=== PATIENT | female | born 1950 | race Caucasian/White ===

== ENCOUNTER 2017-08-13 10:53 | Inpatient (IN) ==
--- NOTE | 2017-08-12 16:28 | Discharge Summary ---
<Viv Kimbrough E - Last Filed: 08/12/17 16:26> Date of Encounter: 08/12/17 - Discharge Diagnosis (1) Arthritis of left hip Priority: Primary Status: Chronic (2) Chronic pain Priority: Secondary Status: Chronic Qualifiers: Chronic pain type: other chronic pain Qualified Code(s): G89.29 - Other chronic pain (3) BMI 30.0-30.9,adult Priority: Secondary Status: Chronic (4) Depression Priority: Secondary Status: Chronic Qualifiers: Depression Type: unspecified Qualified Code(s): F32.9 - Major depressive disorder, single episode, unspecified (5) CKD (chronic kidney disease), stage III Priority: Secondary Status: Chronic (6) HLD (hyperlipidemia) Priority: Secondary Status: Chronic Qualifiers: Hyperlipidemia type: unspecified Qualified Code(s): E78.5 - Hyperlipidemia , unspecified (7) HTN (hypertension) Priority: Secondary Status: Chronic Qualifiers: Hypertension type: unspecified Qualified Code(s): I10 - Essential (primary ) hypertension (8) Diabetes mellitus Priority: Secondary Status: Chronic Qualifiers: Diabetes mellitus type: type 2 Diabetes mellitus complication status: with unspecified complications Diabetes mellitus long-term insulin use: with long-term use Qualified Code(s): E11.8 - Type 2 diabetes mellitus with unspecified complications; Z79.4 - exterminator termite (current) use of insulin; Z79.4 - custodial ( current) use of insulin; Z79.4 - exterminator termite (current) use of insulin; Z79.4 - exterminator termite (current) use of insulin - Discharge Medications Home Medications: Aspirin [Adult Low Dose Aspirin EC] 81 mg PO DAILY 11/22/15 [History] Gabapentin [Neurontin] 800 mg PO TID 11/22/15 [History] Insulin LISPRO [Humalog] 5 - 15 unit SQ TIDWM 11/22/15 [History] Insulin NPH, HUMAN [HumuLIN N] 35 unit SQ BID 11/22/15 [History] Paroxetine HCl [Paroxetine] 40 mg PO DAILY 11/22/15 [History] Aspirin Enteric Coated [Aspirin EC] 325 mg PO DAILY 21 Days #21 tablet. [Rx] Atorvastatin Calcium [Lipitor] 20 mg PO QPM 08/13/17 [History] Buspirone HCl [Buspar] 5 mg PO TID 08/13/17 [History] Celecoxib [Celebrex] 200 mg PO HS 08/13/17 [History] Cyclobenzaprine [Flexeril] 5 mg PO HS 08/13/17 [History] Enalapril Maleate [Vasotec] 10 mg PO BID 08/13/17 [History] Allergies/Adverse Reactions: 3 Allergy/AdvReac Type Severity Reaction Status Date / Time codeine Allergy Severe Anaphylaxis Verified 08/09/17 14:02 Primary care physician: Kimberly Delgado, - Discharge Instructions Follow Up With: Kimberly Delgado MD [Primary Care Provider] - - Hospital Course Hospital course: Ms. Gonzalez is a 66 year old female - Time Spent with Patient Total time spent providing and/or coordinating discharge services: <Clifford Metzger - Last Filed: 08/15/17 09:45> Date of Encounter: 08/15/17 - Discharge Diagnosis (1) Obesity (BMI 35.0-39.9 without comorbidity) Priority: Secondary Status: Chronic (2) DMII (diabetes mellitus, type 2) Priority: Secondary Status: Chronic Qualifiers: Diabetes mellitus complication status: without complication Diabetes mellitus long-term insulin use: unspecified oil heaterman insulin use status (3) HTN (hypertension) Priority: Secondary Status: Chronic (4) Arthritis of left hip Priority: Primary Status: Chronic (5) Chronic pain Priority: Secondary Status: Chronic Qualifiers: Chronic pain type: other chronic pain Qualified Code(s): G89.29 - Other chronic pain (6) Depression Priority: Secondary Status: Chronic Qualifiers: Depression Type: unspecified Qualified Code(s): F32.9 - Major depressive disorder, single episode, unspecified (7) CKD (chronic kidney disease), stage III Priority: Secondary Status: Chronic (8) HLD (hyperlipidemia) Priority: Secondary Status: Chronic Qualifiers: Hyperlipidemia type: unspecified Qualified Code(s): E78.5 - Hyperlipidemia , unspecified (9) HTN (hypertension) Priority: Secondary Status: Chronic Qualifiers: Hypertension type: unspecified Qualified Code(s): I10 - Essential (primary ) hypertension (10) Acute blood loss anemia Priority: Primary Status: Acute Primary care physician: Kimberly Delgado, - Hospital Course Hospital course: Ms. Gonzalez is a 66 year old female - Time Spent with Patient Total time spent providing and/or coordinating discharge services:
--- NOTE | 2017-08-12 16:32 | Physician Discharge Referral ---
ExtendedCare Referral Info Transfer To: [facility] Provider in Charge: Dr Clifford Metzger - Diagnosis (1) Arthritis of left hip Priority: Primary Status: Chronic (2) Chronic pain Priority: Secondary Status: Chronic (3) BMI 30.0-30.9,adult Priority: Secondary Status: Chronic (4) Depression Priority: Secondary Status: Chronic (5) CKD (chronic kidney disease), stage III Priority: Secondary Status: Chronic (6) HLD (hyperlipidemia) Priority: Secondary Status: Chronic (7) HTN (hypertension) Priority: Secondary Status: Chronic (8) Diabetes mellitus Priority: Secondary Status: Chronic Expected Duration of Placement: less than 30 days Prognosis: Good Aware of Diagnosis: Patient Aware of Prognosis: Patient - Transfer Medications Prescriptions: Aspirin Enteric Coated [Aspirin EC] 325 mg PO DAILY 21 Days #21 tablet. Home Medications: Aspirin Enteric Coated [Aspirin EC] 325 mg PO DAILY #21 tablet. 11/21/15 [Rx] OxyCODONE Immed Rel [Roxicodone 5 MG] 5 - 10 mg PO Q6HR PRN #40 tablet 11/21/15 [Rx] Aspirin [Adult Low Dose Aspirin EC] 81 mg PO DAILY 11/22/15 [History] Gabapentin [Neurontin] 800 mg PO TID 11/22/15 [History] Insulin LISPRO [Humalog] 25 unit SQ BID 11/22/15 [History] Insulin NPH, HUMAN [HumuLIN N] 5 unit SQ TID 11/22/15 [History] Paroxetine HCl [Paroxetine] 40 mg PO DAILY 11/22/15 [History] Aspirin Enteric Coated [Aspirin EC] 325 mg PO DAILY 21 Days #21 tablet. [Rx] Allergies/Adverse Reactions: 3 Allergy/AdvReac Type Severity Reaction Status Date / Time codeine Allergy Severe Anaphylaxis Verified 08/09/17 14:02 - Respiratory Orders Smoking Cessation: Smoking cessation has been advised. For more information, call the [place] Tobacco Quit Line at 8-352-LYLV-NOW. - Ancillary Orders May use pressure relief devices daily prn, May go on HERNAN w/family/respon alliance party w /meds at nurse discretion PRN, May consult with Dentist, Occupational Health Nurse Manager, Kennel Attendant PRN - Mobility Orders Chair, Ambulate - Rehabiliation Orders Rehab Potential: Good Rehab Orders: Evaluation for Physical Therapy, Evaluation for Occupational Therapy Other: Total Hip replacement Precautions Apply cold therapy 3-6x/day for 20 minutes at a time. Encourage ambulation throughout the day and incentive spirometer 10x/hour. Elevate affected extremity as tolerated. Brace: Wear hip abduction pillow when laying/sleeping - Treatments Skin tear care topically daily PRN per policy List/Other: Opsite placed. Keep dressing intact until first follow up appointment. If > 50% saturated, notify office, remove dressing and place appropriate dressing back in place. Leave Zipline intact. Opsite dressing is water resistant, not water- proof. OK to shower, but do not get dressing wet. - Diet Orders Regular CERTIFICATION: I certify that the transfer of the above named patient to an Extended Care Facility is necessary for the continuing treatment of the diagnosis listed. The above information is true and accurate reflection of patient's current condition. Confidential - Redisclosure prohibited without a patient's written consent.
[2017-08-13] MEDS ORDERED: *HR* Midazolam HCl 2 MG/2 ML VIAL ONE (10:57)
[2017-08-13] MEDS ORDERED: *HR* Propofol 200 MG/20 ML VIAL IVP ONE (10:57)
[2017-08-13] MEDS ORDERED: *HR* FentaNYL (PF) 100 MCG/2 ML VIAL ONE (10:57)
[2017-08-13] MEDS ORDERED: *HR* Succinylcholine 200 MG/10 ML VIAL IVP ONE (10:58)
[2017-08-13] MEDS ORDERED: Lidocaine -MPF 4% 5 ML AMPUL ONE (10:58)
[2017-08-13] MEDS ORDERED: Lidocaine -MPF 2% 2 ML VIAL ONE (10:58)
[2017-08-13] MEDS ORDERED: Dexamethasone 4 MG/ML VIAL ONE (10:58)
[2017-08-13] MEDS ORDERED: Ondansetron 4 MG/2 ML VIAL ONE (10:58)
--- NOTE | 2017-08-13 11:23 | Anesthesia Evaluation PreOp ---
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 SPECIALIST History: Other (lumbar stenosis) Other Medical History: Renal (CKD), Diabetes Type II Anesthesia History: No Prior Anesthetic Complications, Past Anesthesia Alcohol Use: none Drug use: none Medications and Allergies Aspirin [Adult Low Dose Aspirin EC] 81 mg PO DAILY 11/22/15 [History] Gabapentin [Neurontin] 800 mg PO TID 11/22/15 [History] Insulin LISPRO [Humalog] 5 - 15 unit SQ TIDWM 11/22/15 [History] Insulin NPH, HUMAN [HumuLIN N] 35 unit SQ BID 11/22/15 [History] Paroxetine HCl [Paroxetine] 40 mg PO DAILY 11/22/15 [History] Aspirin Enteric Coated [Aspirin EC] 325 mg PO DAILY 21 Days #21 tablet. [Rx] Atorvastatin Calcium [Lipitor] 20 mg PO QPM 08/13/17 [History] Buspirone HCl [Buspar] 5 mg PO TID 08/13/17 [History] Celecoxib [Celebrex] 200 mg PO HS 08/13/17 [History] Cyclobenzaprine [Flexeril] 5 mg PO HS 08/13/17 [History] Enalapril Maleate [Vasotec] 10 mg PO BID 08/13/17 [History] 3 Allergy/AdvReac Type Severity Reaction Status Date / Time codeine Allergy Severe Anaphylaxis Verified 08/09/17 14:02 - Meds/Allergy Pre-op Review Medications Reviewed: Yes Allergies Reviewed: Yes Beta Blockers on Current Med List: No Anesthesia Results - Labs Laboratory Tests 08/09/17 08/09/17 08/09/17 14:24 14:24 14:24 WBC 5.0 Hgb 11.3 L Hct 36.7 Plt Count 315 PT 12.0 INR 1.1 APTT 42.8 H Sodium 143 Potassium 5.0 H BUN 30 H Creatinine 1.32 H - Imaging EKG: report reviewed (08/09/2017 SINUS RHYTHM POSSIBLE ANTERIOR MYOCARDIAL INFARCTION, OF INDETERMINATE AGE) Additional studies: 02/05/2014 Stress Impression: Pharmacologic stress ECG is negative for ischemia at level of heart rate achieved. No chest pain or arrhythmias during stress. Normal hemodynamic responses to pharmacologic stress. The left ventricle does not appear dilated. Normal wall motion. Gated EF > 70%. No evidence of transient ischemic dilatation. Perfusion imaging was negative for ischemia or infarct. Anesthesia Exam O2 Sat Height 1.63 m Height 1.63 m Height 1.63 m Weight 95.254 kg Weight 95.254 kg Weight 95.254 kg O2 Sat by Pulse Oximetry 98 Vital Signs Temp Pulse Resp BP Pulse Ox 97.6 F 77 18 135/76 98 08/13/17 11:22 08/13/17 11:22 08/13/17 11:22 08/13/17 11:22 08/13/17 11:22 Blood Glucose* 138 Height: 5'4'' Weight: 210 lbs NPO (# of Hours): 8 Pain Scale: 6 (left hip) Pain Scale Used: Numeric (1 - 10) - HEENT Pupil (Motor): EOMI Mallampati: II Teeth: Missing, Poor dentition (multiple broken lower teeth) Denture Type: Upper: Complete Oral Opening: Greater than 3 - FIRE FIGHTING EQUIPMENT SPECIALIST LOC: Oriented FIRE FIGHTING EQUIPMENT SPECIALIST Motor: Normal RUE, Normal LUE, Normal RLE, Normal LLE, Normal Face FIRE FIGHTING EQUIPMENT SPECIALIST Sensory: Normal: RUE, LUE, RLE, LLE, Face - Cardiac Rhythm: Regular Murmur: None - Pulmonary Breath Sounds: bilateral Clear Respiratory Effort: Symmetrical Anesthesia Assess/Plan ASA Score: 3 Modified Edna Scale for Level of Consciousness: Cooperative, oriented, and tranquil Anesthetic Plan: General, Regional Monitoring Plan: Standard Monitors Recovery Plan: PACU
[2017-08-13] MEDS ORDERED: CeFAZolin Syr 2,000MG/20 ML 2,000 MG/20 ML SYRINGE IVPB ONE (11:27)
[2017-08-13] MEDS ORDERED: Lidocaine -MPF 1% 2 ML VIAL ID ONE (11:27)
[2017-08-13] MEDS ORDERED: Plasma-Lyte A (PH 7.4) 1,000 ML IVC SCH ×2 (11:30→14:00)
--- NOTE | 2017-08-13 13:10 | History & Physical Report ---
Date of Encounter: 08/13/17 Time of Encounter: 12:00 24 Hour HP Update - Instructions Instructions: If the History and Physical is less than 30 days old and was completed prior to A.M. admission and or procedure and has NOT been updated on calendar day of procedure please complete this update prior to performing procedure. - Update Patient reports changes in Medical Condition: No Changes in examination, assessment, or condition: No Changes in Medication: No Preop tests/diagnostics Reviewed: Yes Surgery Remains Indicated: Yes Review of Patient reveals the following changes:: Elevated A1c was once again reviewed with the patient this is been a problem for over a year with no improvement significant. Patient with severe pain understands the increased risk with surgery. Discussed with anesthesia as well. - Pre-Operative Checklist Preoperative Checklist Indicated: No Prophylactic Antibiotic Ordered: Yes Is VTE Prophylaxis Indicated?: Yes
[2017-08-13] MEDS ORDERED: Ethanol\\Acetic Acid\\Na Ace\\Ben 1,000 ML IRRIG.SOLN IR ONE (13:20)
--- NOTE | 2017-08-13 13:21 | Anesthesia Procedures ---
Date of Encounter: 08/13/17 Time of Encounter: 13:10 Procedures: Anesthesia - Nerve Block Procedure Date: 08/13/17 Time: 13:10 Allergies/Adv Reactions: Codeine Pre-op Diagnosis: Left Hip Arthritis Surgical Procedure: Left Total Hip Arthroplasty Checklist: Correct Patient Identifier, Correct procedure, History checked Correct side: Left Blood Thinner: No Monitor Applied: EKG, BP, Pulse Oximetry Supplemental Oxygen via Nasal Cannula (L/min): 4 Sedation: Versed (mg): 2 Sedation: Fentanyl (mcg): 100 Indication: Post Op Analgesia Pre-op Neuro Deficits: No Block Type: Femoral Catheter placed: No Sterile Technique: Yes Ultrasound used: Yes Anatomy identified: Yes Visual spread of Local: Yes Neuro Stimulation: No Blood on Needle Aspiration: No Smooth Injection of Local: Yes Pain with Injection of Local: No Prep: Chlorhexadine Needle: 22 x 50 mm Stimuplex Local: Ropivacaine (0.25%) Volume (cc): 60 Number of Attempts: 1 Complications: None/effective block Vitals: Last Vital Signs Temp 97.6 F 08/13/17 11:22 Pulse 73 08/13/17 13:21 Resp 12 08/13/17 13:16 BP 94/61 08/13/17 13:21 Pulse Ox 95 08/13/17 13:21
[2017-08-13] MEDS ORDERED: EPHEDrine 50 MG/ML VIAL ONE (13:38)
[2017-08-13] MEDS ORDERED: Naloxone 0.4 MG/ML INJ IVP PRN ×2 (13:52→16:40)
[2017-08-13] MEDS ORDERED: Albuterol 2.5 MG/3 ML NEBULIZER IH ONE (13:52)
[2017-08-13] MEDS ORDERED: *HR* HYDROmorphone (PF) 1 MG/ML SYRINGE IVP PRN ×2 (13:52→16:40)
[2017-08-13] MEDS ORDERED: Ondansetron 4 MG/2 ML VIAL IVP ONE (13:52)
--- NOTE | 2017-08-13 14:32 | Orthopedic Operative Note ---
Date of procedure: 08/13/17 Pre-op diagnosis: Left hip arthritis Post-op diagnosis: same Procedure: Procedure: Left Total Hip Replacment robotic-assisted Estimated blood loss: 300 cc Hardware: Metal and polyethylene replacement. Cj DM Cup: 52 cup Femoral size stem 10 Head: 4 head with Nisreen Procedural Notes: Grade 4 arthritic changes femoral head acetabular socket, procedure performed with robotic assistance. Operative procedure: The patient was brought to the operating room and placed on the operating room table. After general anesthesia was administered the patient was placed in the lateral decubitus position with the operative leg up. All pressure points were padded appropriately and the head was stabilized in the neutral position. The operative extremity was prepped and draped in the sterile surgical fashion patient received IV antibiotic prior to skin incision. 3 Steinmann pins were placed in the iliac crest 3 cm proximal to the anterior superior iliac spine this was for the robotic-assisted sensor. This was done through a small 2 cm incision. A standard posterior approach is made to the operative hip, the incision was made through the skin and subcutaneous tissue hemostasis was obtained with Bovie cautery. Using careful sharp dissection the fascia was identified and incised exposing the external rotators. The femoral checkpoint was placed leg length was measured at this time utilizing robotic assistance. The operative leg was 1.3 cm shorter than the nonoperative leg. The external rotators were released off the greater trochanter and tagged with #2 FiberWire suture. The capsule was T'd open and the hip was brought into internal rotation. Patient noted to have grade 4 arthritic changes femoral head. The femoral neck cut was made at the appropriate level roughly 18 mm proximal to the lesser trochanter aced on preoperative templating. An anterior capsulotomy was performed for the anterior retractor. Soft tissues removed from the acetabulum. Patient noted to have grade 4 arthritic changes acetabulum. The acetabulum checkpoint was placed confirmed. The acetabulum was then mapped with robotic assistance. Based on the preoperative plan the acetabulum was reamed in one step with a 51 reamer. The 52 acetabulum was impacted with robotic assistance and 40 degrees of abduction and 19 degrees of anteversion. The hip was brought back in to internal rotation and prepared with the sweat box attendant followed by the canal finder followed by the reaming process to a size 10 broaching process in 20 degrees anteversion. It was broached up to the appropriate size 10. Trial reduction revealed leg lengths close to normal. The femoral implant was impacted in place in 20 degrees of anteversion. Trial reduction found the hip to be stable with 4 head and Nisreen. The trials were removed and the real implants were impacted in place. The hip was reduced, patient had robotic confirmed leg length of 2 mm longer than the contralateral side. The hip had excellent stability with forward flexion to 90 degrees adduction of 30 degrees and internal rotation of 60 degrees. The hip had no shuck. The hips after 2 minutes with a Betadine saline solution. It was irrigated out with 2 L of pulse irrigation. The checkpoints were removed, Steinmann pins were removed. The pain incision and the hip were closed by the PA. The deep tissue was irrigated and closed deep with #1 PDS suture superficially with 0 PDS suture and skin was closed with Dermabond and zip tie. The patient was placed in a sterile dressing and abduction pillow. The patient was extubated and transferred to the recovery room in stable condition. Anesthesia: MAE Surgeon: Clifford Metzger Directional Drill Operator: Viv Kimbrough Condition: stable Disposition: PACU
[2017-08-13 15:15] LABS: Hematocrit 34.1 % (35.3-44.9); Hemoglobin 10.9 g/dL (11.5-15.4)
--- NOTE | 2017-08-13 16:02 | Anesthesia Evaluation Post Op ---
Date of Encounter: 08/13/17 Time of Encounter: 16:01 - Vital Signs Vital Signs: Vital Signs/O2 Sat, Most Current Temp Pulse Resp BP Pulse Ox 97.5 F L 89 12 99/67 94 08/13/17 15:54 08/13/17 15:54 08/13/17 15:54 08/13/17 15:54 08/13/17 15:54 - Lungs Lungs: Clear Ascult./Percussion - Airway Airway: Non-obstructed - Cardiovascular Regular Rate - Mental Status Mental Status: Alert & Oriented, Answers Appropriately - Pain Pain Scale: 4 Pain Scale used: Numeric (1 - 10) - Nausea Vomiting Nausea Vomiting: Not Present - Hydration Hydration: Ice chips, Has not voided - Discharge PostOp Status: Discharge Patient to home
[2017-08-13] MEDS ORDERED: Sennosides 8.6 MG TABLET PO PRN (16:40)
[2017-08-13] MEDS ORDERED: Ondansetron 4 MG/2 ML VIAL IVP PRN (16:40)
[2017-08-13] MEDS ORDERED: *HR* Dextrose 50 % in Water (Syg) 50 ML SYRINGE IVP PRN (16:40)
[2017-08-13] MEDS ORDERED: Dextrose Gel 15 GM PO PRN ×2 (16:40)
[2017-08-13] MEDS ORDERED: Temazepam 15 MG CAPSULE PO PRN (16:40)
[2017-08-13] MEDS ORDERED: D5% in Water 1,000 ML IVC PRN (16:40)
[2017-08-13] MEDS ORDERED: MOM Conc 10 ML UD.LIQ PO PRN (16:40)
[2017-08-13] MEDS: *HR* OxyCODONE Immed Rel 5 MG TABLET PO PRN (17:46)
[2017-08-13] MEDS: *HR* Enoxaparin 30 MG/0.3 ML SYRINGE SQ SCH (17:46)
[2017-08-13] MEDS: Ascorbic Acid 500 MG TABLET PO SCH (17:47)
[2017-08-13] MEDS: Insulin LISPRO 300 UNITS/3 ML VIAL SQ SCH ×3 (17:47→21:33)
[2017-08-13] MEDS: Ringers Solution, Lactated 1,000 ML IVC SCH (17:49)
[2017-08-13] MEDS: Gabapentin 400 MG CAPSULE PO SCH ×2 (17:51→21:33)
[2017-08-13] MEDS ORDERED: *HR* Enoxaparin 30 MG/0.3 ML SYRINGE SQ SCH (18:00)
[2017-08-13] MEDS: Insulin NPH 100 UNIT/ML (x5UNIT) SQ SCH (21:32)
[2017-08-13] MEDS: CeFAZolin Premix DUPLEX 2,000 MG/50 ML BAG IVPB SCH (21:34)
[2017-08-14] MEDS: *HR* OxyCODONE Immed Rel 5 MG TABLET PO PRN ×5 (00:27→21:47)
[2017-08-14] MEDS: *HR* Enoxaparin 30 MG/0.3 ML SYRINGE SQ SCH ×2 (05:27→18:11)
[2017-08-14] MEDS: CeFAZolin Premix DUPLEX 2,000 MG/50 ML BAG IVPB SCH (05:27)
--- NOTE | 2017-08-14 06:57 | Orthopedics Progress Note ---
Date of Encounter: 08/14/17 Time of Encounter: 06:56 - Assessment and Plan (1) Obesity (BMI 35.0-39.9 without comorbidity) Current Visit: Yes Status: Chronic (2) DMII (diabetes mellitus, type 2) Current Visit: No Status: Chronic Qualifiers: Diabetes mellitus complication status: without complication Diabetes mellitus joint terminal attack controller insulin use: unspecified nursing home insulin use status Qualified Code(s): E11.9 - Type 2 diabetes mellitus without complications (3) Arthritis of left hip Current Visit: No Status: Chronic (4) Chronic pain Current Visit: No Status: Chronic Qualifiers: Chronic pain type: other chronic pain Qualified Code(s): G89.29 - Other chronic pain (5) Depression Current Visit: No Status: Chronic Qualifiers: Depression Type: unspecified Qualified Code(s): F32.9 - Major depressive disorder, single episode, unspecified (6) CKD (chronic kidney disease), stage III Current Visit: No Status: Chronic (7) HLD (hyperlipidemia) Current Visit: No Status: Chronic Qualifiers: Hyperlipidemia type: unspecified Qualified Code(s): E78.5 - Hyperlipidemia , unspecified (8) HTN (hypertension) Current Visit: No Status: Chronic Qualifiers: Hypertension type: unspecified Qualified Code(s): I10 - Essential (primary ) hypertension Subjective Interval history: Patient was seen this morning doing well without complaints. Afebrile vital signs stable. Operative extremity: Neurovascularly intact Dressing clean dry and intact Calves nontender Assessment and plan: Continue with postoperative care Hematocrit 34 Objective Vital signs: Vital Signs Temp Pulse Resp BP Pulse Ox 08/14/17 04:13 97.9 F 76 107/66 95 08/13/17 23:01 98.4 F 80 16 99/64 97 08/13/17 19:26 97.8 F 92 16 106/69 95 08/13/17 18:34 97.8 F 98 18 103/63 98 08/13/17 18:25 98.7 F 97 18 100/65 97 08/13/17 16:25 98.0 F 90 14 106/68 96 08/13/17 16:04 97.5 F L 89 12 111/72 96 08/13/17 15:54 97.5 F L 89 12 99/67 94 08/13/17 15:44 90 12 96/71 96 08/13/17 15:34 97.8 F 89 12 116/66 97 08/13/17 15:24 89 14 103/75 92 08/13/17 15:14 89 14 120/69 95 08/13/17 15:04 98.7 F 90 16 113/55 95 08/13/17 13:21 73 94/61 95 08/13/17 13:16 73 12 91/66 98 08/13/17 13:06 71 108/54 97 08/13/17 13:02 70 16 117/99 94 08/13/17 11:22 97.6 F 77 18 135/76 98 Intake and Output 08/13/17 08/13/17 08/14/17 15:59 23:59 07:59 Intake Total 20 / 20 50 / 50 Output Total 600 / 600 Balance -580 / -580 50 / 50 Intake: IV Fluids 20 / 20 50 / 50 Ancef Premix DUPLEX 2,000 mg In 50 / 50 50 ml @ 100 mls/hr IVPB Q8H VINAY Rx#:[id number] Ancef Syringe 2,000 MG/20 ML 2, 20 / 20 000 mg In 20 ml @ 200 mls/hr IVPB PREOP ONE Rx#:[id number] Output: Estimated Blood Loss 600 / 600 Other: Weight 95.254 kg Blood Glucose* 138 328 - Labs CBC & BMP: 08/13/17 15:11 Labs: Abnormal lab results Hgb 10.9 g/dL (11.5-15.4) L 08/13/17 15:11 Hct 34.1 % (35.3-44.9) L 08/13/17 15:11 POC Glucose 138 (58-89) H 08/13/17 11:19 - VTE Documentation of Mechanical Device: Venous foot pump, device Consult Discharge Plan - Plan Referrals: Kimberly Delgado MD [Primary Care Provider] -
[2017-08-14] MEDS: Ringers Solution, Lactated 1,000 ML IVC SCH ×2 (07:06→21:49)
[2017-08-14 07:07] LABS: Hematocrit 29.1 % (35.3-44.9)
[2017-08-14 07:11] LABS: Hemoglobin 9.3 g/dL (11.5-15.4)
[2017-08-14 07:19] LABS: Calcium 8.5 mg/dL (8.6-10.8); Potassium 4.3 mEq/L (3.5-4.5)
[2017-08-14] MEDS: Ascorbic Acid 500 MG TABLET PO SCH ×2 (08:26→16:25)
[2017-08-14] MEDS: Gabapentin 400 MG CAPSULE PO SCH ×3 (08:26→21:34)
[2017-08-14] MEDS: Insulin LISPRO 300 UNITS/3 ML VIAL SQ SCH ×7 (08:26→21:34)
[2017-08-14] MEDS: Aspirin Enteric Coated 81 MG Tablet PO SCH (08:26)
[2017-08-14] MEDS: Multivit/Ca/Min/Fe/FA 1 TAB TABLET PO SCH (08:26)
[2017-08-14] MEDS: Insulin NPH 100 UNIT/ML (x5UNIT) SQ SCH ×2 (08:27→21:35)
--- NOTE | 2017-08-14 12:31 | Event Note ---
Date of Encounter: 08/14/17 Time of Encounter: 12:55 PCR- POD#1 L THR Robotic Metzger 08/13 PCR - Patient seen at bedside. 08/14 - H/H 9.3/29.1 Pain control: Adequate Participating in PT. All questions and concerns addressed. Educated on use of incentive spirometer, ambulation, and hydration. Patient educated on post-operative restrictions and care. Addressed: see above. D/C plan: [facility] - awaiting acceptance
[2017-08-15] MEDS: *HR* Enoxaparin 30 MG/0.3 ML SYRINGE SQ SCH (06:22)
[2017-08-15 07:14] LABS: Hematocrit 27.9 % (35.3-44.9); Hemoglobin 8.6 g/dL (11.5-15.4)
[2017-08-15] MEDS: Insulin LISPRO 300 UNITS/3 ML VIAL SQ SCH ×6 (09:05→17:02)
[2017-08-15] MEDS: Ascorbic Acid 500 MG TABLET PO SCH ×2 (09:08→17:08)
[2017-08-15] MEDS: Aspirin Enteric Coated 81 MG Tablet PO SCH (09:08)
[2017-08-15] MEDS: Gabapentin 400 MG CAPSULE PO SCH ×2 (09:08→15:48)
[2017-08-15] MEDS: Multivit/Ca/Min/Fe/FA 1 TAB TABLET PO SCH (09:08)
[2017-08-15] MEDS: *HR* OxyCODONE Immed Rel 5 MG TABLET PO PRN ×2 (09:09→13:14)
[2017-08-15 09:21] LABS: Calcium 8.3 mg/dL (8.6-10.3); Potassium 4.1 mEq/L (3.5-5.1)
[2017-08-15] MEDS: Insulin NPH 100 UNIT/ML (x5UNIT) SQ SCH (09:21)
--- NOTE | 2017-08-15 09:47 | Orthopedics Progress Note ---
Date of Encounter: 08/15/17 Time of Encounter: 09:46 - Assessment and Plan (1) Obesity (BMI 35.0-39.9 without comorbidity) Current Visit: Yes Status: Chronic (2) DMII (diabetes mellitus, type 2) Current Visit: No Status: Chronic Qualifiers: Diabetes mellitus complication status: without complication Diabetes mellitus terminal carman insulin use: unspecified senior living insulin use status Qualified Code(s): E11.9 - Type 2 diabetes mellitus without complications (3) Arthritis of left hip Current Visit: No Status: Chronic (4) Chronic pain Current Visit: No Status: Chronic Qualifiers: Chronic pain type: other chronic pain Qualified Code(s): G89.29 - Other chronic pain (5) Depression Current Visit: No Status: Chronic Qualifiers: Depression Type: unspecified Qualified Code(s): F32.9 - Major depressive disorder, single episode, unspecified (6) CKD (chronic kidney disease), stage III Current Visit: No Status: Chronic (7) HLD (hyperlipidemia) Current Visit: No Status: Chronic Qualifiers: Hyperlipidemia type: unspecified Qualified Code(s): E78.5 - Hyperlipidemia , unspecified (8) HTN (hypertension) Current Visit: No Status: Chronic Qualifiers: Hypertension type: unspecified Qualified Code(s): I10 - Essential (primary ) hypertension (9) Acute blood loss anemia Current Visit: Yes Status: Acute Subjective Interval history: Patient was seen this morning doing well without complaints. Afebrile vital signs stable. Operative extremity: Neurovascularly intact Dressing clean dry and intact Calves nontender Assessment and plan: Continue with postoperative care Hematocrit 27 Objective Vital signs: Vital Signs Temp Pulse Resp BP Pulse Ox 08/15/17 09:10 89 106/54 98 08/15/17 04:48 99.4 F 84 15 103/66 93 08/14/17 23:20 99.5 F 85 18 96/61 92 08/14/17 19:36 99.1 F 88 17 99/58 98 08/14/17 14:08 98.0 F 81 20 93/58 93 08/14/17 11:23 97.9 F 84 18 96/35 93 Intake and Output 08/14/17 08/15/17 08/15/17 23:59 07:59 15:59 Intake Total 120 / 120 50 / 50 Balance 120 / 120 50 / 50 Intake: IV Fluids 50 / 50 Oral 120 / 120 Other: Meal Dinner Percent of Meal Consumed 100% # Voids 0 0 Weight 99.1 kg Blood Glucose* 286 160 Patient Weight 08/15/17 23:59 Weight 99.1 kg - Labs CBC & BMP: 08/15/17 06:39 08/15/17 06:39 Labs: Abnormal lab results Hgb 8.6 g/dL (11.5-15.4) L 08/15/17 06:39 Hct 27.9 % (35.3-44.9) L 08/15/17 06:39 Sodium 131 mEq/L (136-145) L 08/15/17 06:39 BUN 48 mg/dL (8-23) H 08/15/17 06:39 Creatinine 1.97 mg/dL (0.60-1.20) H 08/15/17 06:39 Est GFR ( Amer) 31 (> 60) L 08/15/17 06:39 Est GFR (Non-Af Amer) 26 (> 60) L 08/15/17 06:39 Glucose 155 mg/dL (70-105) H 08/15/17 06:39 POC Glucose 286 (58-89) H 08/14/17 21:12 Calcium 8.3 mg/dL (8.6-10.3) L 08/15/17 06:39 - VTE Documentation of Mechanical Device: Venous foot pump, device Consult Discharge Plan - Plan Referrals: Kimberly Delgado MD [Primary Care Provider] -
[2017-08-15] MEDS ORDERED: 0.9 % Sodium Chloride 250 ML ONE (13:43)
--- NOTE | 2017-08-15 13:49 | Event Note ---
Date of Encounter: 08/15/17 Time of Encounter: 11:50 PCR- POD#2 L THR Robotic [facility] 08/13 PCR - Patient seen at bedside. 08/14 - H/H 9.3/29.1 08/15 - H/H 8.6/27.9 will receive 1 unit RBC today Pain control: Adequate Participating in PT. All questions and concerns addressed. Educated on use of incentive spirometer, ambulation, and hydration. Patient educated on post-operative restrictions and care. Addressed: see above. D/C plan: [facility] today after transfusion
[2017-08-15 17:00] VITALS: BP 101/45
[2017-08-16] MEDS ORDERED: *HR* Enoxaparin 30 MG/0.3 ML SYRINGE SQ SCH (06:00)
== END 2017-08-15 17:25 | DRG 470 ==
LOC: SAMDAY 10:53 → 3NENU 16:26
PROVIDERS: ADMIT Orthopaedic Surgery; ATTEND Orthopaedic Surgery

== ENCOUNTER 2017-09-12 16:23 | Inpatient (IN) ==
[2017-09-12] MEDS ORDERED: D5% in 0.9% NACL 1,000 ML IVC ONE (21:18)
[2017-09-12] MEDS ORDERED: D5% in 0.9% NACL 1,000 ML IVC SCH (21:30)
--- NOTE | 2017-09-12 21:37 | Internal Med History&Physical ---
<Anil Gold - Last Filed: 09/12/17 23:42> Date of Encounter: 09/12/17 Time of Encounter: 21:28 Assessment and Plan (1) Sepsis Current visit: Yes Status: Acute Patient currently received Zosyn prior to arrival at [facility]. We will continue Zosyn. Right IJ CVC was placed at [facility] and patient was started on norepinephrine, currently at 10. We will continue to titrate accordingly. Urine culture obtained here at [facility], likely de- escalation of antibiotics. Patient has received 3 L of normal saline solution upon arrival to the ICU. Qualifiers: Sepsis type: sepsis due to unspecified organism Qualified Code(s): A41.9 - Sepsis, unspecified organism (2) Hyperglycemia due to type 2 diabetes mellitus Current visit: Yes Status: Acute Patient is an insulin-dependent diabetic who has been utilizing her insulin as prescribed. Her glucose this morning was 200. At [facility] it was in the 700s. The patient did have a small anion gap of 18 at [facility]. The patient was started on insulin drip at 8 units per hour. Upon arrival to [facility] ICU, the patient's glucose was noted at 114. It was at that time the patient was started on a D5 drip to raise her glucose and keep it stable. Patient is without coma and answering all questions appropriately. She is resting comfortably in the room. We will repeat beta hydroxy, VBG, labs and continue to monitor. We will continue to monitor lab work to determine if gap closes. Findings initially consistent with apparent HHS at [facility]. Qualifiers: Diabetes mellitus superintendent terminal insulin use: with superintendent terminal use Qualified Code( s): E11.65 - Type 2 diabetes mellitus with hyperglycemia; Z79.4 - intermediate ( current) use of insulin; Z79.4 - intermediate (current) use of insulin; Z79.4 - intermodal customer service (current) use of insulin; Z79.4 - intermediate (current) use of insulin (3) Hypotension Current visit: Yes Status: Acute Please see diagnosis of sepsis for further details. Qualifiers: Hypotension type: unspecified hypotension type Qualified Code(s): I95.9 - Hypotension, unspecified (4) UTI (urinary tract infection) Current visit: Yes Status: Acute This is likely the etiology of patient's hypotension. The patient was started on Zosyn. Please see sepsis diagnosis for further detail. We will continue antibiotics. Repeat urinalysis with culture reflexed here at [facility] was obtained and we will likely de-escalate antibiotics. Qualifiers: Urinary tract infection type: site unspecified Hematuria presence: without hematuria Qualified Code(s): N39.0 - Urinary tract infection, site not specified (5) Generalized weakness Current visit: Yes Status: Acute Likely associated with patient's possible urosepsis. Expect improvement of symptoms. (6) Fall Current visit: Yes Status: Acute Qualifiers: Encounter type: subsequent encounter Qualified Code(s): W19.XXXD - Unspecified fall, subsequent encounter (7) DMII (diabetes mellitus, type 2) Current visit: No Status: Chronic Qualifiers: Diabetes mellitus complication status: with unspecified complications Diabetes mellitus detention insulin use: unspecified superintendent terminal insulin use status Qualified Code(s): E11.8 - Type 2 diabetes mellitus with unspecified complications (8) CKD (chronic kidney disease), stage III Current visit: No Status: Chronic (9) S/P hip replacement Current visit: Yes Status: Acute Qualifiers: Laterality: left Qualified Code(s): Z96.642 - Presence of left artificial hip joint Internal Medicine - H&P: HPI Chief complaint: Generalized weakness Plans for Post Hospital Care: Home History of present illness: Ms. Gonzalez is a 66 year old female with recent hip prosthetic placement 3 weeks ago arrives to the emergency department at [facility] after a mechanical fall this morning. The patient states she felt very weak and fell over on her left hip. The patient states she was unable to move at that time she called EMS. Upon arrival to the emergency department there they evaluated the patient and worked the patient up for concern for her fall. The patient noted dizziness and lightheaded feeling as well as a cough and congestion with nausea that started the past couple days. The patient states that last night she also fell on her left hip. The patient denies any difficulty in breathing. She is a diabetic that is insulin-dependent. The patient has been using her medications as prescribed. She states that her glucose was 200 this morning. Patient denies any other complaints including chest pain, difficulty breathing. The patient was noted to be hypotensive with a systolic blood pressure of 95 at outlying facility and was noted to be febrile with a heart rate of 121. She was 98% on room air. Lab work at [facility] demonstrated a leukocytosis of 25.3. Hemoglobin of 9.9. The patient's CPK was within normal limits. The patient was noted to be hyponatremic with a sodium of 124 but the patient had a glucose of 7:15. The patient was noted to have an anion gap of 18. The patient was also noted to have a creatinine of 1.59 with a GFR of 35. The patient's troponin was within normal limits. Influenza was negative. Troponin on repeat was also negative. The patient did have no elevation in lactic acid. The patient was elevated in a d-dimer. Urinalysis noted findings consistent with a urinary tract infection. The patient had 2 large-bore IVs that were placed and what appears to be 3 L of IV fluid. The patient was given and started on an insulin drip at 8 units per hour. The patient was started on Zosyn. The patient was also started on Levaquin after right IJ CVC placement. X-ray demonstrated a follow-up from placement which demonstrated correct position of right IJ CVC at [facility]. Past Med Surg Social Fam HX - Past Medical History Attestation: Yes The following information was validated with the patient. Source: old records reviewed, nursing notes reviewed Medical history: arthritis, diabetes, GERD, hyperlipidemia, hypertension Psychiatric history: anxiety, depression - Past Surgical History Surgical History: cataract, hip replacement, knee replacement - Social History Smoking Status: Former smoker Smokeless Tobacco Status: No Alcohol use: none Drug use: none Current living situation: Home - Family History Mother Living Status: Hx Family Cardiac Disorders: Yes Father Living Status: Hx Family Cardiac Disorders: Yes (CHF) Internal Medicine - H&P: Meds Aspirin [Adult Low Dose Aspirin EC] 81 mg PO DAILY 11/22/15 [History] Gabapentin [Neurontin] 800 mg PO TID 11/22/15 [History] Insulin LISPRO [Humalog] 5 - 15 unit SQ TIDWM 11/22/15 [History] Insulin NPH, HUMAN [HumuLIN N] 35 unit SQ BID 11/22/15 [History] Paroxetine HCl [Paroxetine] 40 mg PO DAILY 11/22/15 [History] Aspirin Enteric Coated [Aspirin EC] 325 mg PO DAILY 21 Days #21 tablet. [Rx] Atorvastatin Calcium [Lipitor] 20 mg PO QPM 08/13/17 [History] Buspirone HCl [Buspar] 5 mg PO TID 08/13/17 [History] Celecoxib [Celebrex] 200 mg PO HS 08/13/17 [History] Cyclobenzaprine [Flexeril] 5 mg PO HS 08/13/17 [History] Enalapril Maleate [Vasotec] 10 mg PO BID 08/13/17 [History] 3 Allergy/AdvReac Type Severity Reaction Status Date / Time codeine Allergy Severe Anaphylaxis Verified 08/09/17 14:02 All Systems PM: A 10-system review of systems was performed and is negative for pertinent findings except as documented above in the HPI. - Constitutional Constitutional: chills, fever(s), falls, malaise, weakness, no fatigue - EENT Eyes: no change in vision, no discharge, no pain, no photophobia - Cardiovascular Cardiovascular ROS IM: no chest pain, no diaphoresis, no dyspnea, no lightheadedness, no palpitations, no syncope - Respiratory Respiratory: no cough, no dyspnea, no wheezing, no excessive phlegm production - Gastrointestinal Gastrointestinal: abdominal pain (Suprapubic mild tenderness.), no diarrhea, no hematemesis, no hematochezia, no melena, no nausea, no vomiting - Genitourinary Genitourinary: dysuria - Musculoskeletal Musculoskeletal ROS IM: myalgias - Neurological Neurological ROS: no confusion, no convulsions, no focal weakness, no numbness, no tingling, no tremor(s) - Constitutional General appearance: Present: A&O X 3, pleasant, no acute distress - Head Head exam: Present: atraumatic, normocephalic - Eye Eye exam: Present: PERRL, conjuntiva pink, sclera anicteric Pupils: Present: PERRL - Neck Neck exam general surgery: Present: supple, trachea midline. Absent: lymphadenopathy - Respiratory Respiratory exam: Present: CTAB. Absent: accessory muscle use, rales, rhonchi, wheezes - Cardiovascular Cardiovascular exam: Present: +S1, +S2, tachycardia - GI/Abdominal GI/Abdominal exam: Present: soft, tenderness (Mild right sided suprapubic tenderness). Absent: distended, firm, guarding, rigid - Extremities Exam Extremities exam: Present: normal inspection, tenderness (Left hip), warm. Absent: calf tenderness, pedal edema Additional comments: Patient has tenderness to left hip from previous surgical intervention. Surgical wound and dressing intact without any erythema or discharge noted. - Neurological Exam Neurological exam: Present: CN II-XII intact, oriented X3, no focal deficits. Absent: pronater drift, facial droop, speech deficit - Skin Skin exam: Present: dry, intact Internal Med - H&P Results - Labs CBC & Chem 7: 09/12/17 21:35 09/12/17 21:35 - Attending Attestation I examined this patient and my medical decision-making was reviewed with the Resident Physician. I agree with the documented findings, disposition and treatment plan as described except to the extent set forth below. <Anupam Rodrigues - Last Filed: 09/13/17 05:46> Date of Encounter: 09/13/17 Internal Medicine - H&P: HPI History of present illness: Ms. Gonzalez is a 66 year old female All Systems PM: A 10-system review of systems was performed and is negative for pertinent findings except as documented above in the HPI. - Constitutional Vitals: Temp Pulse Resp BP Pulse Ox 98.3 F 82 16 89/49 95 09/13/17 03:54 09/13/17 05:00 09/13/17 05:00 09/13/17 05:00 09/13/17 05:00 Internal Med - H&P Results - Labs CBC & Chem 7: 09/13/17 03:00 09/13/17 03:00 Labs: Short CBC 09/12/17 09/13/17 Range/Units 21:35 03:00 WBC 17.8 H 19.0 H (4.3-11.1) K/mcL Hgb 8.6 L 8.2 L (11.5-15.4) g/dL Hct 26.8 L 26.7 L (35.3-44.9) % Plt Count 203 190 (140-400) K/mcL Neutrophils # 15.4 H 17.0 H (1.6-8.9) K/mcL BMP 09/12/17 09/13/17 21:35 03:00 Sodium 133 L 131 L Potassium 3.6 3.5 Chloride 106 105 Carbon Dioxide 22 L 19 L BUN 24 H 27 H Creatinine 1.54 H 1.82 H Glucose 87 314 H Calcium 7.7 L 7.5 L Cardiac Enzymes 09/12/17 09/13/17 Range/Units 21:35 03:00 Troponin I 0.05 H* 0.03 (< 0.04) ng/mL Urine 09/12/17 Range/Units 21:32 Urine Color Yellow (Yellow) Urine Clarity Turbid A (Clear) Urine pH 6.0 (5.0-8.0) pH Units Ur Specific [place] 1.021 (1.010-1.025) Urine Protein >=300 H (Neg-Trace) mg/dL Urine Glucose (UA) >=1000 H (Normal) mg/dL - ABG Interpretation ABG results: 09/12/17 21:50 VBG pH 7.31 L VBG pCO2 41 VBG pO2 67 H VBG HCO3 21 - Attending Attestation I have seen and examined pt independently, I have discussed with resident physician Dr Gold regarding the management plan. Agree with the documentation. Pt has UTI, sepsis with hypotension, DKA. Pt was transferred on levophed and insulin drip. Pt was placed on DKA protocol and cont zosyn for sepsis. F/U culture result. Try to switch to sc insulin and taper down levophed if pt's condition improves. Closely monitor pt. Critical care time 35 min for hx, chart review, physical, medical decision.
[2017-09-12 21:52] LABS: Basophils % 0.2 %; Hematocrit 26.8 % (35.3-44.9); Hemoglobin 8.6 g/dL (11.5-15.4); Immature Granulocytes % 0.6 % (0-4); Lymphocytes # 0.6 K/mcL (0.6-4.6); Lymphocytes % 3.4 %; Mean Corpuscular HGB Conc 32.1 g/dL (31.6-35.5); Mean Corpuscular Hemoglobin 27.7 pg (28.0-33.3); Mean Corpuscular Volume 86.2 fL (83.0-100.0); Mean Platelet Volume 9.8 fL (9.4-12.4); Monocytes # 1.7 K/mcL (0.0-1.3); Monocytes % 9.4 %; Neutrophils # 15.4 K/mcL (1.6-8.9); Platelet Count 203 K/mcL (140-400); Red Blood Count 3.11 M/mcL (3.82-4.97); Red Cell Distribution Width 13.7 % (11.5-14.5); Segmented Neutrophils % 86.4 %
[2017-09-12 21:53] LABS: VBG HCO3 21 mEq/L (21-27); VBG PCO2 41 mmHg (41-51); VBG PH 7.31 pH Units (7.32-7.42); VBG PO2 67 mmHg (25-50)
[2017-09-12] MEDS ORDERED: Potassium Chloride 40 MEQ/200 ML BAG IVPB PRN (21:53)
[2017-09-12 22:03] LABS: Calcium 7.7 mg/dL (8.6-10.3); Potassium 3.6 mEq/L (3.5-5.1)
[2017-09-12 22:05] LABS: Bilirubin,Urine Negative (Negative); Blood,Urine Moderate (Negative); Clarity,Urine Turbid (Clear); Color,Urine Yellow (Yellow); Glucose,Urine (UA) >=1000 mg/dL (Normal); Ketones,Urine Trace mg/dL (Negative); Leukocyte Esterase,Urine Large (Negative); Nitrite,Urine Negative (Negative); Protein,Urine >=300 mg/dL (Neg-Trace); Specific Gravity,Urine 1.021 (1.010-1.025); Urobilinogen,Urine Normal (Normal)
[2017-09-12 22:18] LABS: Bacteria,Urine Present per hpf (None-Few); RBC,Urine Present per hpf (0-3); Squamous Epithelial Cell,Urine Present per lpf (None-Few); WBC,Urine TNTC per hpf (0-3)
[2017-09-12] MEDS: *HR* Morphine Immed Rel 30 MG TABLET PO PRN (22:18)
[2017-09-12 22:20] LABS: Magnesium 1.7 mg/dL (1.6-2.6)
[2017-09-12] MEDS ORDERED: D5% in 0.45% NACL w KCl 20 MEQ/1,000 ML MLS IVC PRN (22:48)
[2017-09-12] MEDS ORDERED: *HR* Dextrose 50 % in Water (Syg) 50 ML SYRINGE IVP PRN (22:48)
[2017-09-12] MEDS ORDERED: Insulin Human Regular 100 UNIT in 0.9 % Sodium Chloride 100 ML IVC SCH (23:45)
[2017-09-13] MEDS: Piperacillin/Tazobactam 3.375 GM/200 ML BAG IVPB SCH ×4 (00:01→23:15)
[2017-09-13] MEDS ORDERED: 0.9 % Sodium Chloride w KCl 20 MEQ/1,000 ML MLS IVC SCH (02:30)
[2017-09-13 03:19] LABS: Basophils % 0.2 %; Eosinophils % 0.1 %; Hematocrit 26.7 % (35.3-44.9); Hemoglobin 8.2 g/dL (11.5-15.4); Immature Granulocytes % 0.6 % (0-4); Lymphocytes # 0.8 K/mcL (0.6-4.6); Lymphocytes % 4.4 %; Mean Corpuscular HGB Conc 30.7 g/dL (31.6-35.5); Mean Corpuscular Hemoglobin 27.1 pg (28.0-33.3); Mean Corpuscular Volume 88.1 fL (83.0-100.0); Mean Platelet Volume 9.8 fL (9.4-12.4); Monocytes % 5.4 %; Platelet Count 190 K/mcL (140-400); Red Blood Count 3.03 M/mcL (3.82-4.97); Red Cell Distribution Width 13.8 % (11.5-14.5); Segmented Neutrophils % 89.3 %
[2017-09-13 03:45] LABS: Calcium 7.5 mg/dL (8.6-10.3); Potassium 3.5 mEq/L (3.5-5.1)
[2017-09-13] MEDS: Norepinephrine 4 MG in D5% in Water 250 ML IVC SCH (03:47)
[2017-09-13] MEDS: *HR* Heparin 5,000 UNIT/ML VIAL SQ SCH ×3 (05:02→17:47)
[2017-09-13] MEDS: *HR* Morphine Immed Rel 30 MG TABLET PO PRN (07:42)
[2017-09-13] MEDS: D5% in 0.45% NACL 1,000 ML IVC PRN ×2 (08:14→12:52)
--- NOTE | 2017-09-13 08:35 | Pulmonology Consult Note ---
<Hubert Truong - Last Filed: 09/13/17 13:25> Date of Encounter: 09/13/17 Time of Encounter: 08:30 Assessment and Plan (1) Hyperglycemia due to type 2 diabetes mellitus Current Visit: Yes Status: Acute Patient initially presented to [place] with a glucose of 715. -Known IDDM; claims that she is compliant with meds. -Anion gap of 18 at [facility]; has since closed. -Patient was started on insulin drip at 8 U/hr. -Upon arrival to the ICU, patient's glucose was 114. Patient was started on D5 drip. -Beta hydroxy was 0.0. -We will discontinue insulin drip and switch to subcutaneous insulin. Qualifiers: Diabetes mellitus termite control service representative insulin use: with termite control service representative use Qualified Code( s): E11.65 - Type 2 diabetes mellitus with hyperglycemia; Z79.4 - intermodal owner operator truck driver ( current) use of insulin; Z79.4 - intermodal owner operator truck driver (current) use of insulin; Z79.4 - intermodal owner operator truck driver (current) use of insulin; Z79.4 - intermodal owner operator truck driver (current) use of insulin (2) Hypotension Current Visit: Yes Status: Acute Patient was noted to be hypotensive upon arrival to [place] SBP of 95. Likely 2/ 2 sepsis. -Right IJ CVC was placed at [facility]; patient was started on norepinephrine. -Received 3 L normal saline prior to transfer to ICU. -Blood pressure this morning was 91/52. Qualifiers: Hypotension type: unspecified hypotension type Qualified Code(s): I95.9 - Hypotension, unspecified (3) Sepsis Current Visit: Yes Status: Acute Upon arrival to [place], patient was noted to have leukocytosis of 25.3. -Upon arrival [facility], patient's initial white count was 17.8. This morning, white count is 19. -Lactic acid 1.0. Patient remains hypotensive. -Coe catheter and back were examined this morning; contain pus. -Retroperitoneal ultrasound to rule out obstruction/infection. -Currently on Zosyn. Qualifiers: Sepsis type: sepsis due to unspecified organism Qualified Code(s): A41.9 - Sepsis, unspecified organism (4) UTI (urinary tract infection) Current Visit: Yes Status: Acute Likely cause of patient's hypotension. -Pus present in the Coe catheter. -Retroperitoneal ultrasound has been ordered. -White count this morning is 19. -Continue Zosyn. Qualifiers: Urinary tract infection type: site unspecified Hematuria presence: without hematuria Qualified Code(s): N39.0 - Urinary tract infection, site not specified (5) S/P hip replacement Current Visit: Yes Status: Acute Patient is status post left hip replacement. Left hip x-ray ordered. Qualifiers: Laterality: left Qualified Code(s): Z96.642 - Presence of left artificial hip joint History of Present Illness Consult date: 09/13/17 Reason for consult: other (DKA) Chief complaint: Fall History of present illness: Mrs. Gonzalez is a 66-year-old female with past medical history of arthritis, diabetes, GERD, hyperlipidemia, hypertension, recent hip prosthetic placement 3 weeks ago who presented to [place] after mechanical fall. Patient felt very weak and fell on her left hip. Was unable to move. Reported dizziness, lightheadedness, cough, congestion, and nausea. Patient is a known diabetic, insulin-dependent. Reports compliance with medications. Patient was noted to be hypotensive on arrival with systolic blood pressure at 95. Heart rate was 21. Lower examination temperature leukocytosis of 25.3 and hemoglobin of 9.9. Hyponatremic with a sodium of 124. Glucose was elevated at 715. Anion gap of 18. Elevated creatinine at 1.59. Elevated d-dimer at 2677. Patient was started on insulin drip at 8 units per hour. Was also started on Zosyn and Levaquin after right IJ CVC placement. Patient seen and examined up with this morning. Reports feeling somewhat drowsy this morning. Coe catheter observed; contains pus. Past Med Surg Social Fam HX - Past Medical History Medical history: arthritis, diabetes, GERD, hyperlipidemia, hypertension Psychiatric history: anxiety, depression - Past Surgical History Surgical History: cataract, hip replacement, knee replacement - Social History Smoking Status: Former smoker Smokeless Tobacco Status: No Alcohol use: none Drug use: none - Family History Mother Living Status: Hx Family Cardiac Disorders: Yes Father Living Status: Hx Family Cardiac Disorders: Yes (CHF) Medications and Allergies Insulin LISPRO [Humalog] 5 - 15 unit SQ TIDWM 11/22/15 [History] Insulin NPH, HUMAN [HumuLIN N] 35 unit SQ BID 03/28/16 [History] Paroxetine HCl [Paroxetine] 40 mg PO DAILY 11/22/15 [History] Atorvastatin Calcium [Lipitor] 20 mg PO QPM 08/13/17 [History] Buspirone HCl [Buspar] 5 mg PO BID 08/13/17 [History] Celecoxib [Celebrex] 200 mg PO HS 08/13/17 [History] Cyclobenzaprine [Flexeril] 5 mg PO HS 08/13/17 [History] Enalapril Maleate [Vasotec] 5 mg PO DAILY 08/13/17 [History] Gabapentin [Neurontin] 400 mg PO BID 09/13/17 [History] 3 Allergy/AdvReac Type Severity Reaction Status Date / Time codeine Allergy Severe Anaphylaxis Verified 08/09/17 14:02 All Systems: A 10-system review of systems was performed and is negative for pertinent findings except as documented above in the HPI. - Constitutional Constitutional: fatigue, no chills, no excessive sweating - Cardiovascular Cardiovascular: no chest pain at rest, no chest pain with activity, no diaphoresis, no dyspnea, no dyspnea on exertion, no irregular heart rhythm, no radiating jaw, neck or arm pain Physical Examination Vital Signs: Vital Signs, Last 4 Hours Pulse Resp BP Pulse Ox 09/13/17 06:00 85 16 91/52 96 09/13/17 05:00 82 16 89/49 95 General appearance: no acute distress ENT: oropharynx dry Auscultation: bilateral: clear Cardiovascular: regular rate and rhythm mood appropriate, affect normal Results - Laboratory Findings CBC and BMP: 09/13/17 03:00 09/13/17 03:00 PT/INR, D-dimer D-Dimer 2677 ng/mLFEU (0-500) H 09/12/17 21:35 Abnormal lab findings: Abnormal lab results WBC 19.0 K/mcL (4.3-11.1) H 09/13/17 03:00 RBC 3.03 M/mcL (3.82-4.97) L 09/13/17 03:00 Hgb 8.2 g/dL (11.5-15.4) L 09/13/17 03:00 Hct 26.7 % (35.3-44.9) L 09/13/17 03:00 MCH 27.1 pg (28.0-33.3) L 09/13/17 03:00 MCHC 30.7 g/dL (31.6-35.5) L 09/13/17 03:00 Neutrophils # 17.0 K/mcL (1.6-8.9) H 09/13/17 03:00 D-Dimer 2677 ng/mLFEU (0-500) H 09/12/17 21:35 VBG pH 7.31 pH Units (7.32-7.42) L 09/12/17 21:50 VBG pO2 67 mmHg (25-50) H 09/12/17 21:50 Sodium 131 mEq/L (136-145) L 09/13/17 03:00 Carbon Dioxide 19 mEq/L (23-29) L 09/13/17 03:00 BUN 27 mg/dL (8-23) H 09/13/17 03:00 Creatinine 1.82 mg/dL (0.60-1.20) H 09/13/17 03:00 Est GFR ( Amer) 34 (> 60) L 09/13/17 03:00 Est GFR (Non-Af Amer) 28 (> 60) L 09/13/17 03:00 Glucose 314 mg/dL (70-105) H 09/13/17 03:00 POC Glucose 279 (58-89) H 09/13/17 00:41 Calcium 7.5 mg/dL (8.6-10.3) L 09/13/17 03:00 Beta-Hydroxybutyric Acd 0.00 mmol/L (0.02-0.27) L 09/12/17 21:35 Ur Specimen Adequacy See below A 09/12/17 21:32 Urine Clarity Turbid (Clear) A 09/12/17 21:32 Urine Protein >=300 mg/dL (Neg-Trace) H 09/12/17 21:32 Urine Glucose (UA) >=1000 mg/dL (Normal) H 09/12/17 21:32 Urine Ketones Trace mg/dL (Negative) H 09/12/17 21:32 Urine Blood Moderate (Negative) H 09/12/17 21:32 Ur Leukocyte Esterase Large (Negative) H 09/12/17 21:32 Urine Microscopic WBC TNTC per hpf (0-3) H 09/12/17 21:32 Ur Culture Indicated? YES (NO) A 09/12/17 21:32 - Clinical Findings Intake & Output: Intake & Output 09/12/17 09/13/17 09/13/17 23:59 07:59 15:59 Intake Total 0 / 0 1315 / 1315 752 / 752 Output Total 500 / 500 Balance 0 / 0 815 / 815 752 / 752 Weight 91.8 kg 98.1 kg Consult Discharge Plan - Plan Referrals: Kimberly Delgado MD [Primary Care Provider] - <Jaleesa Bansal - Last Filed: 09/13/17 21:21> Date of Encounter: 09/13/17 All Systems: A 10-system review of systems was performed and is negative for pertinent findings except as documented above in the HPI. Physical Examination Vital Signs: Vital Signs, Last 4 Hours Pulse Resp BP Pulse Ox 09/13/17 17:00 93 14 87/58 95 09/13/17 16:00 97 14 101/59 95 Results - Laboratory Findings CBC and BMP: 09/13/17 03:00 09/13/17 03:00 PT/INR, D-dimer D-Dimer 2677 ng/mLFEU (0-500) H 09/12/17 21:35 Abnormal lab findings: Abnormal lab results WBC 19.0 K/mcL (4.3-11.1) H 09/13/17 03:00 RBC 3.03 M/mcL (3.82-4.97) L 09/13/17 03:00 Hgb 8.2 g/dL (11.5-15.4) L 09/13/17 03:00 Hct 26.7 % (35.3-44.9) L 09/13/17 03:00 MCH 27.1 pg (28.0-33.3) L 09/13/17 03:00 MCHC 30.7 g/dL (31.6-35.5) L 09/13/17 03:00 Neutrophils # 17.0 K/mcL (1.6-8.9) H 09/13/17 03:00 D-Dimer 2677 ng/mLFEU (0-500) H 09/12/17 21:35 VBG pH 7.31 pH Units (7.32-7.42) L 09/12/17 21:50 VBG pO2 67 mmHg (25-50) H 09/12/17 21:50 Sodium 131 mEq/L (136-145) L 09/13/17 03:00 Carbon Dioxide 19 mEq/L (23-29) L 09/13/17 03:00 BUN 27 mg/dL (8-23) H 09/13/17 03:00 Creatinine 1.82 mg/dL (0.60-1.20) H 09/13/17 03:00 Est GFR ( Amer) 34 (> 60) L 09/13/17 03:00 Est GFR (Non-Af Amer) 28 (> 60) L 09/13/17 03:00 Glucose 314 mg/dL (70-105) H 09/13/17 03:00 POC Glucose 279 (58-89) H 09/13/17 00:41 Calcium 7.5 mg/dL (8.6-10.3) L 09/13/17 03:00 Beta-Hydroxybutyric Acd 0.00 mmol/L (0.02-0.27) L 09/12/17 21:35 Ur Specimen Adequacy See below A 09/12/17 21:32 Urine Clarity Turbid (Clear) A 09/12/17 21:32 Urine Protein >=300 mg/dL (Neg-Trace) H 09/12/17 21:32 Urine Glucose (UA) >=1000 mg/dL (Normal) H 09/12/17 21:32 Urine Ketones Trace mg/dL (Negative) H 09/12/17 21:32 Urine Blood Moderate (Negative) H 09/12/17 21:32 Ur Leukocyte Esterase Large (Negative) H 09/12/17 21:32 Urine Microscopic WBC TNTC per hpf (0-3) H 09/12/17 21:32 Ur Culture Indicated? YES (NO) A 09/12/17 21:32 - Clinical Findings Intake & Output: Intake & Output 09/13/17 09/13/17 09/13/17 07:59 15:59 23:59 Intake Total 1315 / 1315 4098.5 / 4098.5 0 / 0 Output Total 500 / 500 250 / 250 Balance 815 / 815 3848.5 / 3848.5 0 / 0 Weight 98.1 kg - Attending Attestation I examined this patient and my medical decision-making was reviewed with the Resident Physician. I agree with the documented findings, disposition and treatment plan as described except to the extent set forth below. Patient seen and examined. Labs, radiology, chart personally reviewed. 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 Cardiovascular: Patient in septic shock, will continue fluid resuscitation and try to wean off vasopressors. GI: Nutrition per dietary and GI prophylaxis per routine Heme: DVT prophylaxis per routine. ID: Continue antibiotics and plan to de-escalation Renal; urine out put and renal funtion reviewed Endorcine: blood glucose is monitored. Treat per DKA protocol. Lines: all lines checked and no evidence of infections Skin: skin care to prevent pressure ulcers per nursing routine care
[2017-09-13] MEDS ORDERED: *HR* Dextrose 50 % in Water (Syg) 50 ML SYRINGE IVP PRN (10:38)
[2017-09-13] MEDS ORDERED: Dextrose Gel 15 GM/37.5 ML TUBE PO PRN ×2 (10:38)
[2017-09-13] MEDS ORDERED: D5% in Water 1,000 ML IVC PRN (10:38)
[2017-09-13] MEDS ORDERED: 0.9 % Sodium Chloride 500 ML IVC ONE ×2 (11:14→14:33)
[2017-09-13] MEDS: Insulin LISPRO 300 UNITS/3 ML VIAL SQ SCH ×2 (11:17→15:20)
[2017-09-13] MEDS: Insulin DETEMIR 100 UNIT/ML X5UNITS SQ SCH (11:42)
[2017-09-13] MEDS ORDERED: Insulin LISPRO 300 UNITS/3 ML VIAL SQ SCH ×2 (12:00→21:00)
--- NOTE | 2017-09-13 12:38 | Orthopedic Consult Note ---
Date of Encounter: 09/13/17 Time of Encounter: 12:00 Assessment and Plan (1) Status post total hip replacement, left Current Visit: Yes Status: Chronic Continue with medical management of patient's other health conditions. Communicated patient's status and results with Dr. Metzger. With regards to patient's left hip - honeycomb dressings were removed by this provider and incisions were cleansed with alcohol. Leave incisions open to air. PT/OT as able with patient's other health conditions. Thank you for this consultation. Please reach out with any questions or concerns regarding patient's recent left total hip replacement. (2) Fall Current Visit: Yes Status: Acute Qualifiers: Encounter type: initial encounter Qualified Code(s): W19.XXXA - Unspecified fall, initial encounter History of Present Illness Chief complaint: fall onto prosthetic hip HPI: Ms. Gonzalez is a 66 year old female presenting to [facility] ED from [facility] ED after fall and evidence of significant medical complications. Patient currently in ICU for management of urosepsis and hyperglycemia - patient has a long history of insulin dependent diabetes mellitus. Patient is well known to [facility] having undergone Left Total Hip Replacement robotic-assisted by Dr. Metzger on 08/13/17 here at [facility]. She was last seen in our office 08/31/17 and was doing very well without complaint. She states today that she went to therapy two days ago and got home and remembers being dizzy and then she states she assumes she fell but she states she cannot exactly remember. She does admit that she remembers hearing a "pop" to the left hip with some pain, but denies any loss of use. She states she had a similar issue with "kidney infection" about 1 month before her recent hip surgery and was treated in the hospital presumably [facility] though patient is unclear in expressing this. Xray records obtained from [facility] reveal no acute abnormality, stable left hip arthroplasty as interpreted by Maxim Ramos MD on 09/12/17 at 1043AM. Providers in the ICU have ordered repeat hip xray - will await results of this for image review. On exam patient is resting in bed though somewhat fitful. She is aroused after several vocalizations of her name and touch of her arm. She drifts in and out of speech into somnolence requiring continued stimulation to converse. Bilateral lower extremities are unremarkable. Honeycomb dressings to left hip incisions are still in place. Bilateral hips are nontender to palpation. Patient was able to roll herself unassisted onto right side for full left hip evaluation. No ecchymosis or erythema noted. Bilateral calves are nontender to palpation. Mild scant pitting edema noted to bilateral feet and ankles. Neurovascularly intact. Xray results reviewed obtained today. I agree with radiologist's interpretation. EXAMINATION: THREE VIEWS OF THE LEFT HIP 09/13/2017 1:22 pm COMPARISON: 08/23/2017 HISTORY: ORDERING SYSTEM PROVIDED HISTORY: STATUS POST REPLACEMENT Additional tech notes: DO PORTABLE-- Initial evaluation after left total hip arthroplasty FINDINGS: Postoperative changes are present from left total hip arthroplasty. No acute fracture is present. Component alignment is maintained. No significant lucency surrounding the hardware. Remainder of the pelvis and right hip are maintained. Mild sacroiliac joint degenerative changes are present. Partially imaged degenerative changes in the lumbar spine. XR/XR hip complete LT IMPRESSION: No acute abnormality in the pelvis or left hip status post left hip arthroplasty. D/ / 09/13/2017 14:03:07 David Lewis MD / shayan Interpreting Provider: David Lewis MD Assessment: status post left total hip replacement Plan: Continue with medical management of patient's other health conditions. Communicated patient's status and results with Dr. Metzger. With regards to patient's left hip - honeycomb dressings were removed by this provider and incisions were cleansed with alcohol. Leave incisions open to air. PT/OT as able with patient's other health conditions. Thank you for this consultation. Please reach out with any questions or concerns regarding patient's recent left total hip replacement. Past Med Surg Social Fam HX - Past Medical History Medical history: arthritis, diabetes, GERD, hyperlipidemia, hypertension Psychiatric history: anxiety, depression - Past Surgical History Surgical History: cataract, hip replacement, knee replacement - Social History Smoking Status: Former smoker Smokeless Tobacco Status: No Alcohol use: none Drug use: none - Family History Mother Living Status: Hx Family Cardiac Disorders: Yes Father Living Status: Hx Family Cardiac Disorders: Yes (CHF) Medications and Allergies Insulin LISPRO [Humalog] 5 - 15 unit SQ TIDWM 11/22/15 [History] Insulin NPH, HUMAN [HumuLIN N] 35 unit SQ BID 11/22/15 [History] Paroxetine HCl [Paroxetine] 40 mg PO DAILY 11/22/15 [History] Atorvastatin Calcium [Lipitor] 20 mg PO QPM 08/13/17 [History] Buspirone HCl [Buspar] 5 mg PO BID 08/13/17 [History] Celecoxib [Celebrex] 200 mg PO HS 08/13/17 [History] Cyclobenzaprine [Flexeril] 5 mg PO HS 08/13/17 [History] Enalapril Maleate [Vasotec] 5 mg PO DAILY 08/13/17 [History] Gabapentin [Neurontin] 400 mg PO BID 09/13/17 [History] 3 Allergy/AdvReac Type Severity Reaction Status Date / Time codeine Allergy Severe Anaphylaxis Verified 08/09/17 14:02 All Systems Reviewed: A 10-system review of systems was performed and is negative for pertinent findings except as documented above in the HPI. Physical Exam - Constitutional Vitals: Temp Pulse Resp BP Pulse Ox 102.5 F H 102 16 104/51 94 09/13/17 12:27 09/13/17 10:00 09/13/17 10:00 09/13/17 10:00 09/13/17 10:00 Results - Labs Result Diagrams: 09/13/17 03:00 09/13/17 03:00 Labs: Abnormal lab results WBC 19.0 K/mcL (4.3-11.1) H 09/13/17 03:00 RBC 3.03 M/mcL (3.82-4.97) L 09/13/17 03:00 Hgb 8.2 g/dL (11.5-15.4) L 09/13/17 03:00 Hct 26.7 % (35.3-44.9) L 09/13/17 03:00 MCH 27.1 pg (28.0-33.3) L 09/13/17 03:00 MCHC 30.7 g/dL (31.6-35.5) L 09/13/17 03:00 Neutrophils # 17.0 K/mcL (1.6-8.9) H 09/13/17 03:00 D-Dimer 2677 ng/mLFEU (0-500) H 09/12/17 21:35 VBG pH 7.31 pH Units (7.32-7.42) L 09/12/17 21:50 VBG pO2 67 mmHg (25-50) H 09/12/17 21:50 Sodium 131 mEq/L (136-145) L 09/13/17 03:00 Carbon Dioxide 19 mEq/L (23-29) L 09/13/17 03:00 BUN 27 mg/dL (8-23) H 09/13/17 03:00 Creatinine 1.82 mg/dL (0.60-1.20) H 09/13/17 03:00 Est GFR ( Amer) 34 (> 60) L 09/13/17 03:00 Est GFR (Non-Af Amer) 28 (> 60) L 09/13/17 03:00 Glucose 314 mg/dL (70-105) H 09/13/17 03:00 POC Glucose 279 (58-89) H 09/13/17 00:41 Calcium 7.5 mg/dL (8.6-10.3) L 09/13/17 03:00 Beta-Hydroxybutyric Acd 0.00 mmol/L (0.02-0.27) L 09/12/17 21:35 Ur Specimen Adequacy See below A 09/12/17 21:32 Urine Clarity Turbid (Clear) A 09/12/17 21:32 Urine Protein >=300 mg/dL (Neg-Trace) H 09/12/17 21:32 Urine Glucose (UA) >=1000 mg/dL (Normal) H 09/12/17 21:32 Urine Ketones Trace mg/dL (Negative) H 09/12/17 21:32 Urine Blood Moderate (Negative) H 09/12/17 21:32 Ur Leukocyte Esterase Large (Negative) H 09/12/17 21:32 Urine Microscopic WBC TNTC per hpf (0-3) H 09/12/17 21:32 Ur Culture Indicated? YES (NO) A 09/12/17 21:32 H & H 09/12/17 09/13/17 Range/Units 21:35 03:00 Hgb 8.6 L 8.2 L (11.5-15.4) g/dL Hct 26.8 L 26.7 L (35.3-44.9) % All other labs normal. Consult Discharge Plan - Plan Referrals: Kimberly Delgado MD [Primary Care Provider] -
[2017-09-13] MEDS: Acetaminophen 325 MG TABLET PO PRN (14:02)
[2017-09-13] MEDS: Ringers Solution, Lactated 1,000 ML IVC SCH (16:44)
[2017-09-13 22:21] LABS: VBG Ionized Calcium 1.15 mmol/L (1.15-1.35); VBG PH 7.25 pH Units (7.32-7.42)
[2017-09-13 22:29] LABS: Calcium 7.5 mg/dL (8.6-10.3); Potassium 3.4 mEq/L (3.5-5.1)
[2017-09-13 22:58] LABS: Magnesium 1.8 mg/dL (1.6-2.6); Phosphorous 2.4 mg/dL (2.7-4.5)
[2017-09-14] MEDS: Ringers Solution, Lactated 1,000 ML IVC SCH ×2 (00:45→08:58)
[2017-09-14 03:46] LABS: Basophils % 0.2 %; Eosinophils # 0.1 K/mcL (0.0-0.6); Eosinophils % 0.9 %; Hematocrit 25.3 % (35.3-44.9); Hemoglobin 7.9 g/dL (11.5-15.4); Immature Granulocytes % 0.9 % (0-4); Lymphocytes # 0.8 K/mcL (0.6-4.6); Lymphocytes % 7.3 %; Mean Corpuscular HGB Conc 31.2 g/dL (31.6-35.5); Mean Corpuscular Hemoglobin 27.8 pg (28.0-33.3); Mean Corpuscular Volume 89.1 fL (83.0-100.0); Mean Platelet Volume 10.3 fL (9.4-12.4); Monocytes # 1.3 K/mcL (0.0-1.3); Monocytes % 11.5 %; Neutrophils # 9.2 K/mcL (1.6-8.9); Platelet Count 200 K/mcL (140-400); Red Blood Count 2.84 M/mcL (3.82-4.97); Red Cell Distribution Width 14.1 % (11.5-14.5); Segmented Neutrophils % 79.2 %
[2017-09-14] MEDS: Norepinephrine 4 MG in D5% in Water 250 ML IVC SCH (03:48)
[2017-09-14 04:02] LABS: Calcium 7.5 mg/dL (8.6-10.3); Potassium 3.6 mEq/L (3.5-5.1)
[2017-09-14 04:03] LABS: VBG Ionized Calcium 1.12 mmol/L (1.15-1.35); VBG PH 7.29 pH Units (7.32-7.42)
[2017-09-14] MEDS: Acetaminophen 325 MG TABLET PO PRN ×2 (04:06→16:52)
[2017-09-14 04:55] LABS: Magnesium 1.9 mg/dL (1.6-2.6); Phosphorous 3.1 mg/dL (2.7-4.5)
[2017-09-14] MEDS: *HR* Heparin 5,000 UNIT/ML VIAL SQ SCH ×2 (05:36→19:11)
[2017-09-14] MEDS: Insulin LISPRO 300 UNITS/3 ML VIAL SQ SCH ×4 (07:31→21:09)
[2017-09-14] MEDS: Piperacillin/Tazobactam 3.375 GM/200 ML BAG IVPB SCH ×2 (08:44→17:05)
[2017-09-14] MEDS: Insulin DETEMIR 100 UNIT/ML X5UNITS SQ SCH (08:59)
--- NOTE | 2017-09-14 09:05 | Nephrology Consult Note ---
Date of Encounter: 09/14/17 Time of Encounter: 09:03 Assessment and Plan (1) SEVERO (acute kidney injury) Current Visit: Yes Status: Acute Nonoliguric SEVERO on CKD stage III. SEVERO most likely 2/2 NSAIDs+ACEi, plus subsequent hypotension/renal hypoperfusion and UTI. Since her renal function has continued to worsen despite volume expansion with IVF, there is also the possibility that she has developed ATN. I recommend checking a new UA with microscopy to look for granular casts. The original UA revealed glucosuria, and I suspect the underlying etiology for her CKD stage IIIb is from both diabetic nephropathy plus NSAIDS/COX2. Hyponatremia: need to check urine studies. Volume status: though limited by her obese body habitus, she appeared euvolemic. Will recommend she start a fluid restriction of <2L per day. Further recommendations to follow after working this up. No urgent need for dialysis today, but I recommend she continue to have a renal protective/supportive strategy by avoiding NSAIDs, Bactrim, IV contrast and stabilizing BPs with an MAP >55-60. Discussed with the RADIO OPERATOR. Will follow with you. Thank you for consulting the [facility] group. (2) Hyponatremia Current Visit: Yes Status: Acute See above. Pending results of the afternoon BMP to help trending the PNa. Goal rate of correction should be approximately 6-8mEq / 24hr. (3) CKD (chronic kidney disease), stage III Current Visit: No Status: Chronic Starting CKD work up. Thank you for having already ordered the renal U/S, which was without any postrenal findings. (4) Metabolic acidosis Current Visit: Yes Status: Acute Nonanion gap metabolic acidosis without hyperchloremia. Will recommend slowing her IVF and changing to an isotonic solution comprised of 0.45% + 75mEq sodium bicarb. (5) NSAID long-term use Current Visit: Yes Status: Acute (6) UTI (urinary tract infection) Current Visit: Yes Status: Acute Agree with Abx. As per primary team. Qualifiers: Urinary tract infection type: site unspecified Hematuria presence: without hematuria Qualified Code(s): N39.0 - Urinary tract infection, site not specified (7) Hypotension Current Visit: Yes Status: Acute See above Qualifiers: Hypotension type: unspecified hypotension type Qualified Code(s): I95.9 - Hypotension, unspecified (8) Status post total hip replacement, left Current Visit: Yes Status: Chronic As primary, but I recommend avoiding NSAIDs or COX2 inhibitors. History of Present Illness - Reason for Consult Consult date: 09/14/17 Acute Kidney Injury, Chronic Kidney Disease, hyponatremia Requesting physician: Jaleesa Bansal - Chief Complaint SEVERO on CKD, Hyponatremia - History of Present Illness Melody Gonzalez is a very pleasant 66 y/o WF with a pmh of long standing T2DM, HTN , obesity, recent orthopedic surgery and et al who presented s/p fall with UTI, hypotension on pressors, SEVERO on CKD stage III and hyponatremia. 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 She affirmed that she's been taking Celebrex. She did not affirm N/V/D, but did report less oral intake of late along with inc'd urinary frequency. She has had diabetes for many years. She takes an ACEi. Her PCP is Dr. Kimberly Delgado in [place], [place]. Today the pt reported that she is starting to feel better and did not affirm N/V /D or confusion. She said that yesterday she consumed about 3-4 liters of water. FHx: maternal aunt with ESRD Past Med Surg Social Fam HX - Past Medical History Medical history: arthritis, diabetes, GERD, hyperlipidemia, hypertension Psychiatric history: anxiety, depression - Past Surgical History Surgical History: cataract, hip replacement, knee replacement - Social History Smoking Status: Former smoker Smokeless Tobacco Status: No Alcohol use: none Drug use: none - Family History Mother Living Status: Hx Family Cardiac Disorders: Yes Father Living Status: Hx Family Cardiac Disorders: Yes (CHF) Medications and Allergies Insulin LISPRO [Humalog] 5 - 15 unit SQ TIDWM 11/22/15 [History] Insulin NPH, HUMAN [HumuLIN N] 35 unit SQ BID 11/22/15 [History] Paroxetine HCl [Paroxetine] 40 mg PO DAILY 11/22/15 [History] Atorvastatin Calcium [Lipitor] 20 mg PO QPM 08/13/17 [History] Buspirone HCl [Buspar] 5 mg PO BID 08/13/17 [History] Celecoxib [Celebrex] 200 mg PO HS 08/13/17 [History] Cyclobenzaprine [Flexeril] 5 mg PO HS 12/18/17 [History] Enalapril Maleate [Vasotec] 5 mg PO DAILY 08/13/17 [History] Gabapentin [Neurontin] 400 mg PO BID 09/13/17 [History] 3 Allergy/AdvReac Type Severity Reaction Status Date / Time codeine Allergy Severe Anaphylaxis Verified 08/09/17 14:02 Review of Systems All Systems: reviewed and no additional remarkable complaints except as stated Exam - Vital Signs Vital signs: Initial Vital Signs Pulse 103 09/12/17 21:53 Vital Signs - Last 8 Hours Temp Pulse Resp BP Pulse Ox 09/14/17 08:25 99.0 F 09/14/17 07:00 93 16 110/59 09/14/17 06:30 93 14 106/62 09/14/17 05:17 99.7 F H 09/14/17 05:00 102 16 101/59 09/14/17 04:00 101 18 105/76 09/14/17 03:15 98 16 103/62 93 09/14/17 02:00 90 15 102/52 Intake and Output 09/13/17 09/14/17 09/14/17 23:59 07:59 15:59 Intake Total 200 / 200 1200 / 1200 1480 / 1480 Output Total 50 / 50 250 / 250 50 / 50 Balance 150 / 150 950 / 950 1430 / 1430 Intake: IV Fluids 200 / 200 1200 / 1200 1000 / 1000 Levophed 4 MG In Dextrose 5% 0 / 0 250 ML @ 5 MCG/MIN 19.05 mls/hr IVC CONT VINAY Rx#:[id number] Lactated Ringers 1,000 ML @ 125 1000 / 1000 1000 / 1000 mls/hr IVC .Q8H VINAY Rx#: [id number] Zosyn Premix 3.375 GM/200 ML 3. 200 / 200 200 / 200 375 gm In 200 ml @ 50 mls/hr IVPB Q8HR VINAY Rx#:[id number] Oral 480 / 480 Output: Urine 50 / 50 Catheter 250 / 250 50 / 50 Other: Meal Breakfast Percent of Meal Consumed 35% Weight 100.7 kg Blood Glucose* 136 201 Patient Weight 09/14/17 23:59 Weight 100.7 kg - General Appearance General appearance: well-developed, well-nourished, appears started age, obese EENT: ATNC, PERRL, mucous membranes moist Neck: supple Respiratory: clear Cardiology: no edema, regular rate, regular rhythm, normal S1, normal S2 Gastrointestinal: normoactive bowel sounds, no tenderness, no guarding, obese Integumentary: no rash, warm and dry Neurologic: no focal deficit, no asterixis, alert and oriented x3 Musculoskeletal: no deformities, no erythema, no cyanosis Psychiatric: mood/affect appropriate, cooperative Results - Lab Results 09/14/17 03:31 09/14/17 03:31 Most recent lab results Calcium 7.5 mg/dL (8.6-10.3) L 09/14/17 03:31 Phosphorus 3.1 mg/dL (2.7-4.5) 09/14/17 03:31 Magnesium 1.9 mg/dL (1.6-2.6) 09/14/17 03:31 I reviewed the inpt progress notes, labs, med lists (home and active), imaging and vital signs. Consult Discharge Plan - Plan Referrals: Kimberly Delgado MD [Primary Care Provider] -
[2017-09-14 10:11] LABS: Bilirubin,Urine Negative (Negative); Blood,Urine Moderate (Negative); Clarity,Urine Turbid (Clear); Color,Urine Yellow (Yellow); Glucose,Urine (UA) Normal (Normal); Ketones,Urine Negative (Negative); Leukocyte Esterase,Urine Large (Negative); Nitrite,Urine Negative (Negative); Protein,Urine 100 mg/dL (Neg-Trace); Specific Gravity,Urine 1.017 (1.010-1.025); Urobilinogen,Urine Normal (Normal)
[2017-09-14 10:16] LABS: Squamous Epithelial Cell,Urine Many per lpf (None-Few); WBC,Urine TNTC per hpf (0-3)
[2017-09-14 10:26] LABS: Granular Casts,Urine Moderate per lpf (None Seen); Red Blood Cell Casts,Urine Few per lpf (None Seen); White Blood Cell Casts,Urine Moderate per lpf (None Seen)
[2017-09-14 10:27] LABS: Bacteria,Urine Moderate per hpf (None-Few); RBC,Urine 30-50 per hpf (0-3)
--- NOTE | 2017-09-14 10:33 | Pulmonology Progress Note ---
<Hubert Truong - Last Filed: 09/14/17 10:44> Date of Encounter: 09/14/17 Time of Encounter: 09:45 Assessment and Plan (1) Hyperglycemia due to type 2 diabetes mellitus Current Visit: Yes Status: Acute Patient initially presented to [place] with a glucose of 715. -Known IDDM; claims that she is compliant with meds. -[facility] -Patient was started on insulin drip at 8 U/hr. -Upon arrival to the ICU, patient's glucose was 114. Patient was started on D5 drip. -Beta hydroxy was 0.0. -Patient was started on subcutaneous insulin. -Last glucose was 150. 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 -Initial creatinine 1.54; has since increased to 2.52. -Nephrology has been consulted. (3) Hypotension Current Visit: Yes Status: Acute Patient was noted to be hypotensive upon arrival to [place] SBP of 95. Likely 2/ 2 sepsis. -Right IJ CVC was placed at [facility]; patient was started on norepinephrine. -Central line will be discontinued. -BP this morning was 91/60. Qualifiers: Hypotension type: unspecified hypotension type Qualified Code(s): I95.9 - Hypotension, unspecified (4) Sepsis Current Visit: Yes Status: Acute Upon arrival to [place], patient was noted to have leukocytosis of 25.3. -Upon arrival [place], patient's initial white count was 17.8. -Yesterday, patient's white count was 19, has decreased to 11.6. -Currently on Zosyn. Qualifiers: Sepsis type: sepsis due to unspecified organism Qualified Code(s): A41.9 - Sepsis, unspecified organism (5) UTI (urinary tract infection) Current Visit: Yes Status: Acute Likely cause of patient's hypotension. -Continue Zosyn. Qualifiers: Urinary tract infection type: site unspecified Hematuria presence: without hematuria Qualified Code(s): N39.0 - Urinary tract infection, site not specified (6) S/P hip replacement Current Visit: Yes Status: Acute -Patient is status post left hip replacement. -Left hip x-ray was unremarkable. Qualifiers: Laterality: left Qualified Code(s): Z96.642 - Presence of left artificial hip joint Subjective Interval history: Patient seen and examined this morning. Patient reports that she feels much better today. Denies feeling any weakness. Denies having pain in her left hip. Central line will be discontinued. Patient is resting comfortably in bed and has no complex at this time. Patient will be transferred out of the ICU today. Objective PUL Vital signs: Last Vital Signs Temp 99.0 F 09/14/17 08:25 Pulse 90 09/14/17 10:00 Resp 19 09/14/17 10:00 BP 91/60 09/14/17 10:00 Pulse Ox 97 09/14/17 10:00 General appearance: no acute distress Eyes: nonicteric ENT: oropharynx moist Neck: supple Effort: normal Auscultation: bilateral: clear Cardiovascular: regular rate and rhythm normal mental status mood appropriate, affect normal Results - Laboratory Findings CBC and BMP: 09/14/17 03:31 09/14/17 03:31 PT/INR, D-dimer D-Dimer 2677 ng/mLFEU (0-500) H 09/12/17 21:35 Abnormal lab findings: Abnormal lab results WBC 11.6 K/mcL (4.3-11.1) H 09/14/17 03:31 RBC 2.84 M/mcL (3.82-4.97) L 09/14/17 03:31 Hgb 7.9 g/dL (11.5-15.4) L 09/14/17 03:31 Hct 25.3 % (35.3-44.9) L 09/14/17 03:31 MCH 27.8 pg (28.0-33.3) L 09/14/17 03:31 MCHC 31.2 g/dL (31.6-35.5) L 09/14/17 03:31 Neutrophils # 9.2 K/mcL (1.6-8.9) H 09/14/17 03:31 D-Dimer 2677 ng/mLFEU (0-500) H 09/12/17 21:35 VBG pH 7.29 pH Units (7.32-7.42) L 09/14/17 03:52 VBG pO2 67 mmHg (25-50) H 09/12/17 21:50 Sodium 129 mEq/L (136-145) L 09/14/17 03:31 Carbon Dioxide 19 mEq/L (23-29) L 09/14/17 03:31 BUN 30 mg/dL (8-23) H 09/14/17 03:31 Creatinine 2.52 mg/dL (0.60-1.20) H 09/14/17 03:31 Est GFR ( Amer) 23 (> 60) L 09/14/17 03:31 Est GFR (Non-Af Amer) 19 (> 60) L 09/14/17 03:31 Glucose 150 mg/dL (70-105) H 09/14/17 03:31 POC Glucose 136 (58-89) H 09/13/17 23:19 Calculated Osmolality 277 (280-300) L 09/14/17 03:31 Calcium 7.5 mg/dL (8.6-10.3) L 09/14/17 03:31 Venous Ioniz Calcium 1.12 mmol/L (1.15-1.35) L 09/14/17 03:52 Beta-Hydroxybutyric Acd 0.00 mmol/L (0.02-0.27) L 09/12/17 21:35 Ur Specimen Adequacy See below A 09/12/17 21:32 Urine Clarity Turbid (Clear) A 09/14/17 09:57 Urine Protein 100 mg/dL (Neg-Trace) H 09/14/17 09:57 Urine Blood Moderate (Negative) H 09/14/17 09:57 Ur Leukocyte Esterase Large (Negative) H 09/14/17 09:57 Urine Microscopic RBC 30-50 per hpf (0-3) H 09/14/17 09:57 Urine Microscopic WBC TNTC per hpf (0-3) H 09/14/17 09:57 Ur Squamous Epith Cells Many per lpf (None-Few) H 09/14/17 09:57 Urine Bacteria Moderate per hpf (None-Few) H 09/14/17 09:57 Granular Casts Moderate per lpf (None Seen) H 09/14/17 09:57 RBC Casts Few per lpf (None Seen) H 09/14/17 09:57 WBC Casts Moderate per lpf (None Seen) H 09/14/17 09:57 Ur Culture Indicated? YES (NO) A 09/12/17 21:32 - Microbiology Findings Microbiology Findings: Microbiology, Last 48 Hours 09/12/17 21:32 Urine Culture - Preliminary Urine,Clean Catch Gram Negative Brett - Clinical Findings Intake & Output: Intake & Output 09/13/17 09/14/17 09/14/17 23:59 07:59 15:59 Intake Total 200 / 200 1200 / 1200 1480 / 1480 Output Total 50 / 50 250 / 250 50 / 50 Balance 150 / 150 950 / 950 1430 / 1430 Weight 100.7 kg Consult Discharge Plan - Plan Referrals: Kimberly Delgado MD [Primary Care Provider] - <Jaleesa Bansal M - Last Filed: 09/14/17 14:20> Date of Encounter: 09/14/17 Objective PUL Vital signs: Last Vital Signs Temp 100.7 F H 09/14/17 12:36 Pulse 105 09/14/17 13:03 Resp 16 09/14/17 13:03 BP 124/72 09/14/17 13:03 Pulse Ox 96 09/14/17 13:03 Results - Laboratory Findings CBC and BMP: 09/14/17 03:31 09/14/17 03:31 PT/INR, D-dimer D-Dimer 2677 ng/mLFEU (0-500) H 09/12/17 21:35 Abnormal lab findings: Abnormal lab results WBC 11.6 K/mcL (4.3-11.1) H 09/14/17 03:31 RBC 2.84 M/mcL (3.82-4.97) L 09/14/17 03:31 Hgb 7.9 g/dL (11.5-15.4) L 09/14/17 03:31 Hct 25.3 % (35.3-44.9) L 09/14/17 03:31 MCH 27.8 pg (28.0-33.3) L 09/14/17 03:31 MCHC 31.2 g/dL (31.6-35.5) L 09/14/17 03:31 Neutrophils # 9.2 K/mcL (1.6-8.9) H 09/14/17 03:31 D-Dimer 2677 ng/mLFEU (0-500) H 09/12/17 21:35 VBG pH 7.29 pH Units (7.32-7.42) L 09/14/17 03:52 VBG pO2 67 mmHg (25-50) H 09/12/17 21:50 Sodium 129 mEq/L (136-145) L 09/14/17 03:31 Carbon Dioxide 19 mEq/L (23-29) L 09/14/17 03:31 BUN 30 mg/dL (8-23) H 09/14/17 03:31 Creatinine 2.52 mg/dL (0.60-1.20) H 09/14/17 03:31 Est GFR ( Amer) 23 (> 60) L 09/14/17 03:31 Est GFR (Non-Af Amer) 19 (> 60) L 09/14/17 03:31 Glucose 150 mg/dL (70-105) H 09/14/17 03:31 POC Glucose 136 (58-89) H 09/13/17 23:19 Calculated Osmolality 277 (280-300) L 09/14/17 03:31 Calcium 7.5 mg/dL (8.6-10.3) L 09/14/17 03:31 Venous Ioniz Calcium 1.12 mmol/L (1.15-1.35) L 09/14/17 03:52 Creatine Kinase < 10 Units/L (30-223) L 09/14/17 12:20 Beta-Hydroxybutyric Acd 0.00 mmol/L (0.02-0.27) L 09/12/17 21:35 Ur Specimen Adequacy See below A 09/12/17 21:32 Urine Clarity Turbid (Clear) A 09/14/17 09:57 Urine Protein 100 mg/dL (Neg-Trace) H 09/14/17 09:57 Urine Blood Moderate (Negative) H 09/14/17 09:57 Ur Leukocyte Esterase Large (Negative) H 09/14/17 09:57 Urine Microscopic RBC 30-50 per hpf (0-3) H 09/14/17 09:57 Urine Microscopic WBC TNTC per hpf (0-3) H 09/14/17 09:57 Ur Squamous Epith Cells Many per lpf (None-Few) H 09/14/17 09:57 Urine Bacteria Moderate per hpf (None-Few) H 09/14/17 09:57 Granular Casts Moderate per lpf (None Seen) H 09/14/17 09:57 RBC Casts Few per lpf (None Seen) H 09/14/17 09:57 WBC Casts Moderate per lpf (None Seen) H 09/14/17 09:57 Ur Culture Indicated? YES (NO) A 09/12/17 21:32 - Microbiology Findings Microbiology Findings: Microbiology, Last 48 Hours 09/12/17 21:32 Urine Culture - Preliminary Urine,Clean Catch Gram Negative Brett - Clinical Findings Intake & Output: Intake & Output 09/13/17 09/14/17 09/14/17 23:59 07:59 15:59 Intake Total 200 / 200 1200 / 1200 1480 / 1480 Output Total 50 / 50 250 / 250 175 / 175 Balance 150 / 150 950 / 950 1305 / 1305 Weight 100.7 kg - Attending Attestation I examined this patient and my medical decision-making was reviewed with the Resident Physician. I agree with the documented findings, disposition and treatment plan as described except to the extent set forth below. Patient seen and examined. Labs, radiology, chart personally reviewed. 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 GI: Nutrition per dietary and GI prophylaxis per routine Heme: DVT prophylaxis per routine ID: Continue antibiotics and plan to de-escalation Renal; urine out put and renal funtion reviewed. Nephrology consultation. Endorcine: blood glucose is monitored. Patient to be on long-acting and sliding scale insulin. Lines: all lines checked and no evidence of infections Skin: skin care to prevent pressure ulcers per nursing routine care Patient hemodynamically stable to be transferred to the floor and she will need rehabilitation.
[2017-09-14] MEDS ORDERED: Furosemide 40 MG/4 ML VIAL IVP ONE (10:49)
[2017-09-14] MEDS ORDERED: Ondansetron 4 MG/2 ML VIAL ONE (10:55)
[2017-09-14] MEDS ORDERED: Ondansetron 4 MG/2 ML VIAL IVP ONE ×3 (10:55→11:41)
[2017-09-14] MEDS: *HR* Morphine Immed Rel 30 MG TABLET PO PRN ×2 (10:59→16:58)
[2017-09-14] MEDS ORDERED: Norepinephrine 4 MG in D5% in Water 250 ML IVC SCH (12:50)
[2017-09-14] MEDS ORDERED: *HR* Dextrose 50 % in Water (Syg) 50 ML SYRINGE IVP PRN (12:50)
[2017-09-14] MEDS ORDERED: Ringers Solution, Lactated 1,000 ML IVC SCH (12:50)
[2017-09-14] MEDS ORDERED: Dextrose Gel 15 GM/37.5 ML TUBE PO PRN ×2 (12:50)
[2017-09-14] MEDS ORDERED: Potassium Chloride 40 MEQ/200 ML BAG IVPB PRN (12:50)
[2017-09-14 22:12] LABS: Calcium 7.6 mg/dL (8.6-10.3); Potassium 3.6 mEq/L (3.5-5.1)
[2017-09-14] MEDS: Sodium Bicarbonate 75 MEQ in 0.45 % Sodium Chloride 1,000 ML IVC SCH (22:29)
[2017-09-15 03:34] LABS: Potassium 3.7 mEq/L (3.5-5.1)
[2017-09-15 03:44] LABS: Thyroid Stimulating Hormone 1.727 mcIU/mL (0.340-5.600)
[2017-09-15] MEDS: Piperacillin/Tazobactam 3.375 GM/200 ML BAG IVPB SCH ×2 (04:11→16:24)
[2017-09-15] MEDS: Insulin LISPRO 300 UNITS/3 ML VIAL SQ SCH ×4 (08:29→20:23)
--- NOTE | 2017-09-15 09:43 | Nephrology Progress Note ---
Date of Encounter: 09/15/17 Time of Encounter: 09:25 - Assessment and Plan (1) SEVERO (acute kidney injury) Current Visit: Yes Status: Acute SCr has stablized, which is reassuring. Not hyperkalemic either, and so there are no indications for GOSPEL SINGER at this time. Hyponatremia is trending better as well, and would continue the Fluid Restriction of <2L per day. She is c/o diffuse abd pain associated with N/V, that started early this AM. The pt's RN was in the room and reported that onset was at least before 0700. The ddx is broad but the pt's abd on exam was not rigid but was diffusely tender and worsened with movement. I know that the recent renal U/S returned without any obvious renal anatomical abnormalities that could induce diffuse abd pain. I instructed the RN to notify the hospitalist to continue the work up and mgt. Meanwhile, continue the 1/2NS +75mEq of bicarb for now for the SEVERO, and continue to follow a renal protective strategy including avoidance of NSAIDs and COX2 inhibitors, and IV contrast if able. Thank you. (2) Hyponatremia Current Visit: Yes Status: Acute Trending better, see above. (3) CKD (chronic kidney disease), stage III Current Visit: No Status: Chronic (4) Metabolic acidosis Current Visit: Yes Status: Acute Trending better, cont the 1/2NS+75mEq bicarb which is an isotonic solution at 75mL/hr. If she were to fall back into DKA/HHS, then IVF may need to be adjusted. (5) NSAID long-term use Current Visit: Yes Status: Acute See above. Avoid nephrotoxins. (6) UTI (urinary tract infection) Current Visit: Yes Status: Acute On Abx. The UA from yesterday revealed an ongoing UTI. Qualifiers: Urinary tract infection type: site unspecified Hematuria presence: without hematuria Qualified Code(s): N39.0 - Urinary tract infection, site not specified (7) Hypotension Current Visit: Yes Status: Acute Trending better and she moved out of the ICU yesterday to the 3NE unit. Qualifiers: Hypotension type: unspecified hypotension type Qualified Code(s): I95.9 - Hypotension, unspecified (8) Status post total hip replacement, left Current Visit: Yes Status: Chronic Recent orthopedic surgery. Subjective Principal diagnosis: Hyperglycemia, SEVERO on CKD3, DM, N/V, UTI Interval history: Pt was seen/examined, and she reported abd pain: described as severe, diffuse, worsens with movement but without any appreciable palliative features. She affirmed associated symptoms of N/V. Onset started at least before 0700, according the RN, but the pt was not sure exactly other than sayit it was earlier this AM. She reported having a hx of GB surgery. She was crying and reported pronounced pain. Objective - Vital Signs Vital signs: Vital Signs Temp Pulse Resp BP Pulse Ox 09/15/17 07:37 97.4 F L 100 22 126/76 91 09/15/17 04:35 99.2 F 91 16 121/70 97 09/15/17 00:08 98.5 F 70 14 110/59 96 09/14/17 18:49 100.7 F H 99 15 88/56 93 09/14/17 17:00 103.3 F H 111 18 112/76 96 09/14/17 15:03 112 16 129/81 95 09/14/17 13:03 105 16 124/72 96 09/14/17 12:36 100.7 F H 09/14/17 10:00 90 19 91/60 97 Intake and Output 09/14/17 09/15/17 09/15/17 23:59 07:59 15:59 Intake Total 1200 / 1200 300 / 300 0 / 0 Output Total 300 / 300 800 / 800 Balance 900 / 900 -500 / -500 0 / 0 Intake: IV Fluids 1200 / 1200 Lactated Ringers 1,000 ML @ 125 1000 / 1000 mls/hr IVC .Q8H VINAY Rx#: [id number] Zosyn Premix 3.375 GM/200 ML 3. 200 / 200 375 gm In 200 ml @ 50 mls/hr IVPB Q12H [facility]AY Rx#:[id number] Oral 300 / 300 0 / 0 Output: Catheter 300 / 300 800 / 800 Other: Meal Lunch Breakfast Percent of Meal Consumed 15% 0% Blood Glucose* 139 138 - General Appearance General appearance: Present: appears started age, obese, moderate distress, fatigue EENT: Present: ATNC, PERRL, mucous membranes moist Neck: Present: supple Respiratory: Present: clear Cardiology: Present: edema (trace to 1+ pedal and finger edema b/l), normal S1, normal S2 Gastrointestinal: Present: tenderness, rebound tenderness, guarding, obese Additional Comments: Not distended and not rigid. Integumentary: Present: warm and dry Neurologic: Present: no focal deficit, no asterixis, alert and oriented x3 Musculoskeletal: Present: no erythema, no cyanosis Psychiatric: Present: agitated, cooperative - Lab 09/14/17 03:31 09/15/17 03:01 Most recent lab results Calcium 8.0 mg/dL (8.6-10.3) L 09/15/17 03:01 Phosphorus 3.1 mg/dL (2.7-4.5) 09/14/17 03:31 Magnesium 1.9 mg/dL (1.6-2.6) 09/14/17 03:31 Consult Discharge Plan - Plan Referrals: Kimberly Delgado MD [Primary Care Provider] -
[2017-09-15] MEDS: Insulin DETEMIR 100 UNIT/ML X5UNITS SQ SCH (09:44)
[2017-09-15] MEDS: *HR* Heparin 5,000 UNIT/ML VIAL SQ SCH ×2 (09:45→18:06)
[2017-09-15 10:22] LABS: Basophils % 0.2 %; Eosinophils # 0.1 K/mcL (0.0-0.6); Eosinophils % 0.6 %; Hematocrit 27.2 % (35.3-44.9); Hemoglobin 8.5 g/dL (11.5-15.4); Immature Granulocytes % 0.4 % (0-4); Lymphocytes # 0.3 K/mcL (0.6-4.6); Mean Corpuscular HGB Conc 31.3 g/dL (31.6-35.5); Mean Corpuscular Hemoglobin 27.3 pg (28.0-33.3); Mean Corpuscular Volume 87.5 fL (83.0-100.0); Mean Platelet Volume 10.4 fL (9.4-12.4); Monocytes # 0.9 K/mcL (0.0-1.3); Monocytes % 8.2 %; Neutrophils # 9.8 K/mcL (1.6-8.9); Platelet Count 238 K/mcL (140-400); Red Blood Count 3.11 M/mcL (3.82-4.97); Red Cell Distribution Width 14.2 % (11.5-14.5); Segmented Neutrophils % 87.6 %
[2017-09-15 10:53] LABS: Albumin 2.4 g/dL (3.5-5.7); Albumin/Globulin Ratio 0.8 (1.1-2.2); Bilirubin,Indirect 0.3 mg/dL (0.0-1.2); Bilirubin,Total 0.3 mg/dL (0.3-1.0); Globulin 2.9 g/dL (2.4-3.5); Total Protein 5.3 g/dL (6.4-8.9)
[2017-09-15] MEDS: Sodium Bicarbonate 75 MEQ in 0.45 % Sodium Chloride 1,000 ML IVC SCH (14:53)
--- NOTE | 2017-09-15 17:44 | Internal Med Progress Note ---
Date of Encounter: 09/15/17 Time of Encounter: 17:44 - Assessment and plan (1) Sepsis Current Visit: Yes Status: Acute Assessment and plan: This AM patient does not have fevers but does get tachycardic still. WBC improved to 11 today. Will need close monitoring Addendum: was notified by [facility] that blood culturs came back positive. Will request sensitivities from them. Currently continue Zosyn Qualifiers: Sepsis type: sepsis due to unspecified organism Qualified Code(s): A41.9 - Sepsis, unspecified organism (2) UTI (urinary tract infection) Current Visit: Yes Status: Acute Assessment and plan: Continue Zosyn. Urine sensitivities came back; resistant to Unasyn and Bactrim. Qualifiers: Urinary tract infection type: site unspecified Hematuria presence: without hematuria Qualified Code(s): N39.0 - Urinary tract infection, site not specified (3) Abdominal pain Current Visit: Yes Status: Acute Assessment and plan: Cause currently unknown, patient does not comply with physical exam but her abdomen is soft, without guarding, bowel sounds are normal. Will obtain stat CT abdomen/pelvis without contrast due to renal function CMP CBC Lipase Lactic acid troponin. 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 Continue to avoid nephrotoxic medications. (6) S/P hip replacement Current Visit: Yes Status: Acute Qualifiers: Laterality: left Qualified Code(s): Z96.642 - Presence of left artificial hip joint (7) DMII (diabetes mellitus, type 2) Current Visit: No Status: Chronic Assessment and plan: Diabetic diet Levemir 25 units HS ISS Qualifiers: Diabetes mellitus complication status: with unspecified complications Diabetes mellitus petroleum terminal plant operator insulin use: unspecified petroleum terminal plant operator insulin use status Qualified Code(s): E11.8 - Type 2 diabetes mellitus with unspecified complications (8) Chronic pain Current Visit: No Status: Chronic Assessment and plan: Possibly causing abdominal pain that patient is complaining of. Qualifiers: Chronic pain type: other chronic pain Qualified Code(s): G89.29 - Other chronic pain (9) CKD (chronic kidney disease), stage III Current Visit: No Status: Chronic (10) HLD (hyperlipidemia) Current Visit: No Status: Chronic Qualifiers: Hyperlipidemia type: unspecified Qualified Code(s): E78.5 - Hyperlipidemia , unspecified (11) HTN (hypertension) Current Visit: No Status: Chronic Qualifiers: Hypertension type: essential hypertension Qualified Code(s): I10 - Essential (primary) hypertension (12) Generalized weakness Current Visit: Yes Status: Acute (13) Fall Current Visit: Yes Status: Acute Qualifiers: Encounter type: initial encounter Qualified Code(s): W19.XXXA - Unspecified fall, initial encounter (14) Status post total hip replacement, left Current Visit: Yes Status: Chronic (15) NSAID long-term use Current Visit: Yes Status: Acute - Subjective Interval history: Patient this morning complains of acute abdominal pain. She locates it diffusely and is unable to provide further information. She is tearful and does not provide any other information. Nursing reports she was sleeping peaceful prior to encounter. - Constitutional Vitals: Temp Pulse Resp BP Pulse Ox 99.8 F H 88 18 123/79 97 09/15/17 16:32 09/15/17 16:32 09/15/17 16:32 09/15/17 16:32 09/15/17 16:32 Exam: Limited exam as patient refuses some of physical exam Gen: mild distress, does not want to cooperate with exam CVS: RRR Lungs: CTAB Abd: soft, +TTP with light palpation Ext: no edema Internal Medicine: Result - Labs CBC & Chem 7: 09/15/17 09:37 09/15/17 03:01 Labs: Short CBC 09/15/17 Range/Units 09:37 WBC 11.2 H (4.3-11.1) K/mcL Hgb 8.5 L (11.5-15.4) g/dL Hct 27.2 L (35.3-44.9) % Plt Count 238 (140-400) K/mcL Neutrophils # 9.8 H (1.6-8.9) K/mcL BMP 09/14/17 09/15/17 21:36 03:01 Sodium 131 L 133 L Potassium 3.6 3.7 Chloride 105 106 Carbon Dioxide 20 L 21 L BUN 30 H 31 H Creatinine 2.99 H 2.98 H Glucose 126 H 129 H Calcium 7.6 L 8.0 L Cardiac Enzymes 09/15/17 Range/Units 10:24 Troponin I < 0.03 (< 0.04) ng/mL Liver Function 09/15/17 Range/Units 10:24 Total Bilirubin 0.3 (0.3-1.0) mg/dL Direct Bilirubin 0.0 (0.0-0.2) mg/dL AST 7 L (13-39) Units/L ALT 5 L (7-52) Units/L Alkaline Phosphatase 102 (34-104) Units/L Albumin 2.4 L (3.5-5.7) g/dL - ABG Interpretation ABG results: PT/INR, D-dimer D-Dimer 2677 ng/mLFEU (0-500) H 09/12/17 21:35 - Impressions Impressions Abdomen/Pelvis CT 09/15/17 10:08 IMPRESSION: No acute abnormality. D/ / 09/15/2017 11:46:30 Fredy Lewis MD / Faiza Wright Interpreting Provider: Fredy Lewis MD Consult Discharge Plan - Plan Referrals: Kimberly Delgado MD [Primary Care Provider] -
[2017-09-16] MEDS: Piperacillin/Tazobactam 3.375 GM/200 ML BAG IVPB SCH (03:39)
[2017-09-16] MEDS: *HR* Morphine Immed Rel 30 MG TABLET PO PRN (03:41)
[2017-09-16 05:11] LABS: Basophils % 0.2 %; Calcium 8.2 mg/dL (8.6-10.3); Eosinophils # 0.1 K/mcL (0.0-0.6); Hematocrit 26.7 % (35.3-44.9); Hemoglobin 8.3 g/dL (11.5-15.4); Immature Granulocytes % 0.4 % (0-4); Lymphocytes # 0.8 K/mcL (0.6-4.6); Lymphocytes % 7.6 %; Mean Corpuscular HGB Conc 31.1 g/dL (31.6-35.5); Monocytes # 1.1 K/mcL (0.0-1.3); Monocytes % 10.9 %; Platelet Count 281 K/mcL (140-400); Potassium 4.1 mEq/L (3.5-5.1); Red Blood Count 3.07 M/mcL (3.82-4.97); Segmented Neutrophils % 79.9 %
[2017-09-16] MEDS: Sodium Bicarbonate 75 MEQ in 0.45 % Sodium Chloride 1,000 ML IVC SCH (05:14)
[2017-09-16 05:17] LABS: Neutrophils # 8.2 K/mcL (1.6-8.9)
[2017-09-16 06:03] LABS: Platelet Estimate Normal (Normal)
[2017-09-16] MEDS: *HR* Heparin 5,000 UNIT/ML VIAL SQ SCH ×2 (06:36→17:21)
[2017-09-16] MEDS: Insulin DETEMIR 100 UNIT/ML X5UNITS SQ SCH (08:26)
[2017-09-16] MEDS: Insulin LISPRO 300 UNITS/3 ML VIAL SQ SCH ×4 (08:26→21:01)
[2017-09-16] MEDS ORDERED: Insulin DETEMIR 100 UNIT/ML X5UNITS SQ ONE (08:27)
[2017-09-16] MEDS: Ondansetron 4 MG/2 ML VIAL IVP PRN (09:05)
--- NOTE | 2017-09-16 11:03 | Nephrology Progress Note ---
Date of Encounter: 09/16/17 Time of Encounter: 11:02 - Assessment and Plan (1) SEVERO (acute kidney injury) Current Visit: Yes Status: Acute UOP is sufficient and improving as is the SCr, which is trending better. Continue to follow a renal protective and conservative strategy. Now that her renal fx has improved, I agree with stopping IVF at this point. Suspect she will autodiuresis as the SEVERO continues to rebound. Hyponatremia is trending better as well, and would continue the Fluid Restriction of <2L per day. Continue to follow a renal protective strategy including avoidance of NSAIDs and COX2 inhibitors, and IV contrast if able. Thank you. (2) Hyponatremia Current Visit: Yes Status: Acute Trending better, see above. (3) CKD (chronic kidney disease), stage III Current Visit: No Status: Chronic CKD stage III, noted as her baseline. Work up for CKD has been ordered and reference labs are still pending. Renal U/S was essentially unremarkable. Risk factors include: chronic NSAIDs, obesity, HTN (4) Metabolic acidosis Current Visit: Yes Status: Acute Trending better (5) NSAID long-term use Current Visit: Yes Status: Acute See above. Avoid nephrotoxins. (6) UTI (urinary tract infection) Current Visit: Yes Status: Acute On Abx. Qualifiers: Urinary tract infection type: site unspecified Hematuria presence: without hematuria Qualified Code(s): N39.0 - Urinary tract infection, site not specified (7) Hypotension Current Visit: Yes Status: Acute Trending better Qualifiers: Hypotension type: unspecified hypotension type Qualified Code(s): I95.9 - Hypotension, unspecified (8) Status post total hip replacement, left Current Visit: Yes Status: Chronic Recent orthopedic surgery. Subjective Principal diagnosis: Hyperglycemia, SEVERO on CKD3, DM, N/V, UTI Interval history: Pt was seen/examined, and she reported feeling better today without abd pain. Still affirmed +N/V at time. Her and daughter were present, plus other family members arrived during my interview and examine. She did not affirm F/C/ D. Objective - Vital Signs Vital signs: Vital Signs Temp Pulse Resp BP Pulse Ox 09/16/17 07:11 98.6 F 80 20 127/76 98 09/16/17 03:23 98.5 F 93 18 165/90 94 09/15/17 23:44 99.3 F 88 18 146/79 96 09/15/17 19:26 98.8 F 87 18 131/87 93 09/15/17 16:32 99.8 F H 88 18 123/79 97 09/15/17 11:40 98 F 103 17 127/73 93 Intake and Output 09/15/17 09/16/17 09/16/17 23:59 07:59 15:59 Intake Total 450 / 450 1075 / 1075 Output Total 1250 / 1250 650 / 650 Balance -800 / -800 425 / 425 Intake: IV Fluids 300 / 300 1075 / 1075 Sodium Bicarbonate 75 MEQ In 0. 1075 / 1075 45% Sodium Chloride 1000 Ml 1000 Ml 1,000 ML @ 75 mls/hr IVC .[id number] VINAY Rx#:[id number] Zosyn Premix 3.375 GM/200 ML 3. 200 / 200 375 gm In 200 ml @ 50 mls/hr IVPB Q12H VINAY Rx#:[id number] Potassium Chloride 10 mEq/100mL 100 / 100 10 meq In 100 ml @ 100 mls/hr IVPB Q1H PRN Rx#:[id number] Oral 150 / 150 Output: Emesis 300 / 300 Catheter 1250 / 1250 350 / 350 Other: Blood Glucose* 98 96 - General Appearance Exam: General appearance: Present: appears started age, obese, moderate distress, fatigue EENT: Present: ATNC, PERRL, mucous membranes moist Neck: Present: supple Respiratory: Present: clear Cardiology: Present: edema (trace to 1+ pedal and finger edema b/l), normal S1, normal S2 Gastrointestinal: Present: nontenderness, obese, not distended and not rigid. Integumentary: Present: warm and dry Neurologic: Present: no focal deficit, no asterixis, alert and oriented x3 Musculoskeletal: Present: no erythema, no cyanosis Psychiatric: Present: calm and also gently cried, cooperative - Lab 09/16/17 04:26 09/16/17 04:26 Most recent lab results Calcium 8.2 mg/dL (8.6-10.3) L 09/16/17 04:26 Phosphorus 3.1 mg/dL (2.7-4.5) 09/14/17 03:31 Magnesium 1.9 mg/dL (1.6-2.6) 09/14/17 03:31 Consult Discharge Plan - Plan Referrals: Kimberly Delgado MD [Primary Care Provider] -
[2017-09-16] MEDS: cefTRIAXone 1,000 MG in Water for inj. (sterile) 10 ML IVP SCH (12:38)
[2017-09-16] MEDS ORDERED: Prochlorperazine 10 MG/2 ML VIAL IVP PRN (12:44)
--- NOTE | 2017-09-16 23:54 | Internal Med Progress Note ---
Date of Encounter: 09/16/17 Time of Encounter: 12:52 - Assessment and plan (1) Sepsis Current Visit: Yes Status: Acute Assessment and plan: This AM patient does not have fevers but does get tachycardic still. WBC improved to 11 today. Will need close monitoring Addendum: was notified by [facility] that blood culturs came back positive. Will request sensitivities from them. Currently continue Zosyn Repeat blood cultures pending, but clinically she looks well, no longer septic. Qualifiers: Sepsis type: sepsis due to unspecified organism Qualified Code(s): A41.9 - Sepsis, unspecified organism (2) UTI (urinary tract infection) Current Visit: Yes Status: Acute Assessment and plan: Continue Zosyn. Urine sensitivities came back; resistant to Unasyn and Bactrim. Qualifiers: Urinary tract infection type: site unspecified Hematuria presence: without hematuria Qualified Code(s): N39.0 - Urinary tract infection, site not specified (3) Abdominal pain Current Visit: Yes Status: Acute Assessment and plan: Cause currently unknown, patient does not comply with physical exam but her abdomen is soft, without guarding, bowel sounds are normal. Will obtain stat CT abdomen/pelvis without contrast due to renal function CMP CBC Lipase Lactic acid troponin. 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 Continue to avoid nephrotoxic medications. (6) S/P hip replacement Current Visit: Yes Status: Acute Qualifiers: Laterality: left Qualified Code(s): Z96.642 - Presence of left artificial hip joint (7) DMII (diabetes mellitus, type 2) Current Visit: No Status: Chronic Assessment and plan: Diabetic diet Levemir 25 units HS ISS Qualifiers: Diabetes mellitus complication status: with unspecified complications Diabetes mellitus retirement insulin use: unspecified terminal superintendent insulin use status Qualified Code(s): E11.8 - Type 2 diabetes mellitus with unspecified complications (8) Chronic pain Current Visit: No Status: Chronic Assessment and plan: Possibly causing abdominal pain that patient is complaining of. Qualifiers: Chronic pain type: other chronic pain Qualified Code(s): G89.29 - Other chronic pain (9) CKD (chronic kidney disease), stage III Current Visit: No Status: Chronic (10) HLD (hyperlipidemia) Current Visit: No Status: Chronic Qualifiers: Hyperlipidemia type: unspecified Qualified Code(s): E78.5 - Hyperlipidemia , unspecified (11) HTN (hypertension) Current Visit: No Status: Chronic Qualifiers: Hypertension type: essential hypertension Qualified Code(s): I10 - Essential (primary) hypertension (12) Generalized weakness Current Visit: Yes Status: Acute (13) Fall Current Visit: Yes Status: Acute Qualifiers: Encounter type: initial encounter Qualified Code(s): W19.XXXA - Unspecified fall, initial encounter (14) Status post total hip replacement, left Current Visit: Yes Status: Chronic (15) NSAID long-term use Current Visit: Yes Status: Acute - Subjective Interval history: on 09/15 Patient twas complaining of acute abdominal pain. She was unable to provide a throughout history. LA, CBC/BMP, Lipase, CT abdomen were all unremarkable. 09/16 Developing some edema in extremities, no dyspnea. - Constitutional Vitals: Temp Pulse Resp BP Pulse Ox 98.8 F 96 16 151/80 93 09/16/17 19:40 09/16/17 19:40 09/16/17 19:40 09/16/17 19:40 09/16/17 19:40 General appearance: Present: A&O X 3, pleasant, no acute distress - Head Head exam: Present: atraumatic, normocephalic - Eye Eye exam: Present: PERRL, conjuntiva pink, sclera anicteric Pupils: Present: PERRL - Neck Neck exam general surgery: Present: supple, trachea midline. Absent: lymphadenopathy - Respiratory Respiratory exam: Present: CTAB. Absent: accessory muscle use, rales, rhonchi, wheezes - Cardiovascular Cardiovascular exam: Present: RRR, +S1, +S2. Absent: diastolic murmur, gallop, rubs, systolic murmur - GI/Abdominal GI/Abdominal exam: Present: normal bowel sounds, soft, no peritoneal signs. Absent: distended, tenderness - Extremities Exam Extremities exam: Present: pedal edema, warm, radial pulses palpable and symmetrical. Absent: calf tenderness, cyanotic - Neurological Exam Neurological exam: Present: CN II-XII intact, oriented X3, no focal deficits. Absent: pronater drift, facial droop, speech deficit - Skin Skin exam: Present: dry, intact Internal Medicine: Result - Labs CBC & Chem 7: 09/16/17 04:26 09/16/17 04:26 Labs: Short CBC 09/16/17 Range/Units 04:26 WBC 10.3 (4.3-11.1) K/mcL Hgb 8.3 L (11.5-15.4) g/dL Hct 26.7 L (35.3-44.9) % Plt Count 281 (140-400) K/mcL Neutrophils # 8.2 (1.6-8.9) K/mcL BMP 09/16/17 04:26 Sodium 138 Potassium 4.1 Chloride 105 Carbon Dioxide 25 BUN 27 H Creatinine 2.47 H Glucose 82 Calcium 8.2 L - ABG Interpretation ABG results: PT/INR, D-dimer D-Dimer 2677 ng/mLFEU (0-500) H 09/12/17 21:35 Consult Discharge Plan - Plan Referrals: Kimberly Delgado MD [Primary Care Provider] -
[2017-09-17 05:21] LABS: Basophils % 0.4 %; Eosinophils # 0.1 K/mcL (0.0-0.6); Eosinophils % 1.1 %; Hematocrit 28.2 % (35.3-44.9); Hemoglobin 8.8 g/dL (11.5-15.4); Immature Granulocytes % 0.4 % (0-4); Immature Platelets 2.1 % (1.1-6.1); Lymphocytes # 0.7 K/mcL (0.6-4.6); Lymphocytes % 8.9 %; Mean Corpuscular HGB Conc 31.2 g/dL (31.6-35.5); Mean Corpuscular Volume 86.5 fL (83.0-100.0); Mean Platelet Volume 9.7 fL (9.4-12.4); Monocytes # 0.8 K/mcL (0.0-1.3); Monocytes % 10.5 %; Neutrophils # 6.3 K/mcL (1.6-8.9); Platelet Count 352 K/mcL (140-400); Red Blood Count 3.26 M/mcL (3.82-4.97); Red Cell Distribution Width 13.9 % (11.5-14.5); Segmented Neutrophils % 78.7 %
[2017-09-17] MEDS: *HR* Heparin 5,000 UNIT/ML VIAL SQ SCH ×2 (05:25→17:54)
[2017-09-17 05:34] LABS: Calcium 8.5 mg/dL (8.6-10.3); Potassium 3.7 mEq/L (3.5-5.1)
[2017-09-17 09:01] LABS: Complement Component 3 115 mg/dL (88-201)
[2017-09-17 09:02] LABS: Complement Component 4 13 mg/dL (10-40)
[2017-09-17] MEDS ORDERED: Prochlorperazine 10 MG/2 ML VIAL IVP PRN ×2 (09:24→09:42)
[2017-09-17] MEDS: cefTRIAXone 1,000 MG in Water for inj. (sterile) 10 ML IVP SCH (09:31)
[2017-09-17] MEDS: Insulin DETEMIR 100 UNIT/ML X5UNITS SQ SCH (09:32)
[2017-09-17] MEDS: Insulin LISPRO 300 UNITS/3 ML VIAL SQ SCH ×4 (09:32→21:39)
--- NOTE | 2017-09-17 12:00 | Nephrology Progress Note ---
Date of Encounter: 09/17/17 Time of Encounter: 09:50 - Assessment and Plan (1) SEVERO (acute kidney injury) Current Visit: Yes Status: Acute SEVERO correcting and she continues to make excellent UOP, suspect she will autodiuresis Doing well from a Renal perspective. Hyponatremia, resolved, and would continue the Fluid Restriction of <2L per day. Continue to follow a renal protective strategy including avoidance of NSAIDs and COX2 inhibitors, and IV contrast if able. At discharge would hold the Enalapril until she can have a BMP checked about week after discharge -- if SCr improves to her CKD stage III baseline, then would be reasonable to resume. She will need outpt Nephrology follow up with me in about 3-5 weeks. Thank you. (2) Hyponatremia Current Visit: Yes Status: Acute Trending better, see above. (3) CKD (chronic kidney disease), stage III Current Visit: No Status: Chronic CKD stage III, noted as her baseline. Work up for CKD has been ordered and reference labs are still pending. Renal U/S was essentially unremarkable. Risk factors include: chronic NSAIDs, obesity, HTN (4) NSAID long-term use Current Visit: Yes Status: Acute See above. Avoid nephrotoxins. (5) UTI (urinary tract infection) Current Visit: Yes Status: Acute On Abx. Qualifiers: Urinary tract infection type: site unspecified Hematuria presence: without hematuria Qualified Code(s): N39.0 - Urinary tract infection, site not specified (6) Hypotension Current Visit: Yes Status: Acute Resolved Qualifiers: Hypotension type: unspecified hypotension type Qualified Code(s): I95.9 - Hypotension, unspecified (7) Status post total hip replacement, left Current Visit: Yes Status: Chronic Recent orthopedic surgery. Subjective Principal diagnosis: Hyperglycemia, SEVERO on CKD3, DM, N/V, UTI Interval history: Pt was seen/examined, and she reported feeling better today without abd pain. Still affirmed +N/V at time. Her and daughter were present, plus other family members arrived during my interview and examine. She did not affirm F/C/ D. Objective - Vital Signs Vital signs: Vital Signs Temp Pulse Resp BP Pulse Ox 09/17/17 08:20 172/96 09/17/17 07:10 98.5 F 94 14 151/81 96 09/17/17 04:40 98.4 F 88 12 170/89 95 09/17/17 00:08 98.7 F 83 12 154/83 95 09/16/17 19:40 98.8 F 96 16 151/80 93 09/16/17 14:43 98.2 F 87 16 149/83 96 Intake and Output 09/16/17 09/17/17 09/17/17 23:59 07:59 15:59 Intake Total 475 / 475 0 / 0 Output Total 1400 / 1400 1500 / 1500 Balance -1400 / -1400 -1025 / -1025 0 / 0 Intake: Oral 475 / 475 0 / 0 Output: Catheter 1400 / 1400 1500 / 1500 Other: Meal Breakfast Percent of Meal Consumed 0% Blood Glucose* 98 148 - General Appearance Exam: General appearance: Present: appears started age, obese, moderate distress, fatigue EENT: Present: ATNC, PERRL, mucous membranes moist Neck: Present: supple Respiratory: Present: clear Cardiology: Present: edema (trace to 1+ pedal and finger edema b/l), normal S1, normal S2 Gastrointestinal: Present: nontenderness, obese, not distended and not rigid. Integumentary: Present: warm and dry Neurologic: Present: no focal deficit, no asterixis, alert and oriented x3 Musculoskeletal: Present: no erythema, no cyanosis Psychiatric: Present: calm and also gently cried, cooperative - Lab 09/18/17 07:29 09/18/17 07:29 Most recent lab results Calcium 8.5 mg/dL (8.6-10.3) L 09/17/17 05:07 Phosphorus 3.1 mg/dL (2.7-4.5) 09/14/17 03:31 Magnesium 1.9 mg/dL (1.6-2.6) 09/14/17 03:31 Consult Discharge Plan - Plan Referrals: Kimberly Delgado MD [Primary Care Provider] -
[2017-09-17 12:26] LABS: Kappa Qnt Free Light Chains 2.58 mg/dL (0.33-1.94); Lambda Qnt Free Light Chains 2.62 mg/dL (0.57-2.63)
[2017-09-17 13:39] LABS: ANA IgG by ELISA NONE DETECTED (None Detected)
[2017-09-17] MEDS: *HR* Morphine Immed Rel 30 MG TABLET PO PRN (20:55)
--- NOTE | 2017-09-18 02:52 | Internal Med Progress Note ---
Date of Encounter: 09/17/17 Time of Encounter: 14:50 - Assessment and plan (1) Sepsis Current Visit: Yes Status: Acute Assessment and plan: Was notified by [facility] that blood culturs came back positive. We have requested sensitivities from them Until then, we do have urine culture sensitivities, based on these will DC Zosyn and start Rocephin Repeat blood cultures pending, but clinically she looks well, no longer septic. Qualifiers: Sepsis type: sepsis due to unspecified organism Qualified Code(s): A41.9 - Sepsis, unspecified organism (2) Intractable nausea and vomiting Current Visit: Yes Status: Acute Assessment and plan: Unsure of exact cause. Initially looked like it was due to acute illness. However patient is no longer septic. She had abdominal pain a few days ago and a workup was done with a negative CT abdomen/pelvis (without contrast), CMP, CBC , lipase, lactic acid, troponin - all of which were unremarkable. Glucose is well controlled. She is currently getting treated with Zofran and Compazine. Qualifiers: Vomiting type: unspecified Qualified Code(s): R11.2 - Nausea with vomiting , unspecified (3) UTI (urinary tract infection) Current Visit: Yes Status: Acute Assessment and plan: Urine sensitivities came back; resistant to Unasyn and Bactrim. Will DC Zosyn and narrow coverage to Rocephin Qualifiers: Urinary tract infection type: site unspecified Hematuria presence: without hematuria Qualified Code(s): N39.0 - Urinary tract infection, site not specified (4) Abdominal pain Current Visit: Yes Status: Acute Assessment and plan: Cause currently unknown, patient does not comply with physical exam but her abdomen is soft, without guarding, bowel sounds are normal. Will obtain stat CT abdomen/pelvis without contrast due to renal function CMP CBC Lipase Lactic acid troponin. 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 Continue to avoid nephrotoxic medications. Will switch antibiotic to Rocephin which does not need renal dosing (7) S/P hip replacement Current Visit: Yes Status: Acute Qualifiers: Laterality: left Qualified Code(s): Z96.642 - Presence of left artificial hip joint (8) DMII (diabetes mellitus, type 2) Current Visit: No Status: Chronic Assessment and plan: Diabetic diet Levemir 25 units HS ISS Qualifiers: Diabetes mellitus complication status: with unspecified complications Diabetes mellitus strategic account executive insulin use: unspecified residential insulin use status Qualified Code(s): E11.8 - Type 2 diabetes mellitus with unspecified complications (9) Chronic pain Current Visit: No Status: Chronic Assessment and plan: Possibly causing abdominal pain that patient is complaining of. Qualifiers: Chronic pain type: other chronic pain Qualified Code(s): G89.29 - Other chronic pain (10) CKD (chronic kidney disease), stage III Current Visit: No Status: Chronic (11) HLD (hyperlipidemia) Current Visit: No Status: Chronic Qualifiers: Hyperlipidemia type: unspecified Qualified Code(s): E78.5 - Hyperlipidemia , unspecified (12) HTN (hypertension) Current Visit: No Status: Chronic Qualifiers: Hypertension type: essential hypertension Qualified Code(s): I10 - Essential (primary) hypertension (13) Generalized weakness Current Visit: Yes Status: Acute (14) Fall Current Visit: Yes Status: Acute Qualifiers: Encounter type: initial encounter Qualified Code(s): W19.XXXA - Unspecified fall, initial encounter (15) Status post total hip replacement, left Current Visit: Yes Status: Chronic (16) NSAID long-term use Current Visit: Yes Status: Acute - Subjective Interval history: Patient has intractable nausea and vomiting for 2 days. Somewhat relieved with Zofran and Compazine. No fevers/chills. She had abdominal pain which now resolved. - Constitutional Vitals: Temp Pulse Resp BP Pulse Ox 98.2 F 80 15 153/78 95 09/18/17 00:15 09/18/17 00:15 09/18/17 00:15 09/18/17 00:15 09/18/17 00:15 General appearance: Present: A&O X 3, pleasant, no acute distress - Head Head exam: Present: atraumatic, normocephalic - Eye Eye exam: Present: PERRL, conjuntiva pink, sclera anicteric Pupils: Present: PERRL - Neck Neck exam general surgery: Present: supple, trachea midline. Absent: lymphadenopathy - Respiratory Respiratory exam: Present: CTAB. Absent: accessory muscle use, rales, rhonchi, wheezes - Cardiovascular Cardiovascular exam: Present: RRR, +S1, +S2. Absent: diastolic murmur, gallop, rubs, systolic murmur - GI/Abdominal GI/Abdominal exam: Present: normal bowel sounds, soft, no peritoneal signs. Absent: distended, tenderness - Extremities Exam Extremities exam: Present: warm, radial pulses palpable and symmetrical. Absent : calf tenderness, cyanotic, pedal edema - Neurological Exam Neurological exam: Present: CN II-XII intact, oriented X3, no focal deficits. Absent: pronater drift, facial droop, speech deficit - Skin Skin exam: Present: dry, intact Internal Medicine: Result - Labs CBC & Chem 7: 09/17/17 05:07 09/17/17 05:07 Labs: Short CBC 09/17/17 Range/Units 05:07 WBC 8.0 (4.3-11.1) K/mcL Hgb 8.8 L (11.5-15.4) g/dL Hct 28.2 L (35.3-44.9) % Plt Count 352 (140-400) K/mcL Neutrophils # 6.3 (1.6-8.9) K/mcL BMP 09/17/17 05:07 Sodium 142 Potassium 3.7 Chloride 106 Carbon Dioxide 25 BUN 21 Creatinine 1.67 H Glucose 130 H Calcium 8.5 L - ABG Interpretation ABG results: PT/INR, D-dimer D-Dimer 2677 ng/mLFEU (0-500) H 09/12/17 21:35 - Impressions Impressions Hip X-Ray 09/13/17 11:17 IMPRESSION: No acute abnormality in the pelvis or left hip status post left hip arthroplasty. D/ / 09/13/2017 14:03:07 David Lewis MD / shayan Interpreting Provider: David Lewis MD Consult Discharge Plan - Plan Referrals: Kimberly Delgado MD [Primary Care Provider] -
[2017-09-18] MEDS: *HR* Heparin 5,000 UNIT/ML VIAL SQ SCH ×2 (06:20→16:49)
[2017-09-18 07:54] LABS: Calcium 8.7 mg/dL (8.6-10.3); Potassium 3.3 mEq/L (3.5-5.1)
[2017-09-18 08:05] LABS: Basophils % 0.3 %; Eosinophils # 0.2 K/mcL (0.0-0.6); Eosinophils % 2.3 %; Hematocrit 28.8 % (35.3-44.9); Hemoglobin 8.7 g/dL (11.5-15.4); Immature Granulocytes % 0.5 % (0-4); Lymphocytes # 0.8 K/mcL (0.6-4.6); Mean Corpuscular HGB Conc 30.2 g/dL (31.6-35.5); Mean Corpuscular Hemoglobin 26.4 pg (28.0-33.3); Mean Corpuscular Volume 87.3 fL (83.0-100.0); Mean Platelet Volume 9.6 fL (9.4-12.4); Monocytes # 0.7 K/mcL (0.0-1.3); Monocytes % 10.7 %; Neutrophils # 4.9 K/mcL (1.6-8.9); Nucleated Red Blood Cells 0.3 /100 WBC (0); Platelet Count 390 K/mcL (140-400); Red Cell Distribution Width 13.8 % (11.5-14.5); Segmented Neutrophils % 74.2 %
[2017-09-18 08:35] LABS: Myeloperoxidase Ab 0 AU/mL (0-19); Serine Protease-3 Antibody 0 AU/mL (0-19)
[2017-09-18] MEDS: Insulin LISPRO 300 UNITS/3 ML VIAL SQ SCH ×4 (09:27→20:00)
[2017-09-18] MEDS: cefTRIAXone 1,000 MG in Water for inj. (sterile) 10 ML IVP SCH (09:30)
[2017-09-18] MEDS: Insulin DETEMIR 100 UNIT/ML X5UNITS SQ SCH (09:31)
--- NOTE | 2017-09-18 11:10 | Nephrology Progress Note ---
Date of Encounter: 09/18/17 Time of Encounter: 10:50 - Assessment and Plan (1) SEVERO (acute kidney injury) Current Visit: Yes Status: Acute Continuing to trend better from a renal perspective. Volume status is improving Regarding her home med Enalapril at 5 mg po daily, at discharge I would hold the Enalapril until she can have a BMP checked about week after discharge -- if SCr improves to her CKD stage III baseline, then would be reasonable to resume. Doing well from a Renal perspective. Hyponatremia, resolved, and would continue the Fluid Restriction of <2L per day. Continue to follow a renal protective strategy including avoidance of NSAIDs and COX2 inhibitors, and IV contrast if able. She will need outpt Nephrology follow up with me in about 3-5 weeks. Will sign-off for now. Thank you. (2) Hyponatremia Current Visit: Yes Status: Acute Trending better, see above. (3) CKD (chronic kidney disease), stage III Current Visit: No Status: Chronic CKD stage III, noted as her baseline. Work up for CKD has been ordered and reference labs are still pending. Renal U/S was essentially unremarkable. Risk factors include: chronic NSAIDs, obesity, HTN (4) NSAID long-term use Current Visit: Yes Status: Acute See above. Avoid nephrotoxins. (5) UTI (urinary tract infection) Current Visit: Yes Status: Acute On Abx. Qualifiers: Urinary tract infection type: site unspecified Hematuria presence: without hematuria Qualified Code(s): N39.0 - Urinary tract infection, site not specified (6) Hypotension Current Visit: Yes Status: Acute Resolved Qualifiers: Hypotension type: unspecified hypotension type Qualified Code(s): I95.9 - Hypotension, unspecified (7) Status post total hip replacement, left Current Visit: Yes Status: Chronic Recent orthopedic surgery. Subjective Principal diagnosis: Hyperglycemia, SEVERO on CKD3, DM, N/V, UTI Interval history: Pt was seen/examined, and she reported feeling better today without abd pain. Still affirmed +N but no vomiting today. She was moved down to the Pediatric unit, which is where I found her for rounds. Objective - Vital Signs Vital signs: Vital Signs Temp Pulse Resp BP Pulse Ox 09/18/17 08:28 97.6 F 103 16 182/95 94 09/18/17 04:42 98.2 F 86 15 150/74 94 09/18/17 00:15 98.2 F 80 15 153/78 95 09/17/17 20:05 98.5 F 96 15 172/84 96 09/17/17 15:49 98.7 F 91 20 122/70 100 09/17/17 15:44 98.2 F 93 20 163/85 97 09/17/17 12:47 99.4 F 97 20 145/85 96 Intake and Output 09/17/17 09/18/17 09/18/17 23:59 07:59 15:59 Intake Total 240 / 240 Output Total 1200 / 1200 2150 / 2150 Balance -960 / -960 -2150 / -2150 Intake: Oral 240 / 240 Output: Catheter 1200 / 1200 2150 / 2150 Other: Meal Dinner Percent of Meal Consumed 10% Blood Glucose* 102 135 - General Appearance General appearance: Present: well-developed, well-nourished, appears started age , obese EENT: Present: ATNC, PERRL, mucous membranes moist Neck: Present: supple Respiratory: Present: clear Cardiology: Present: regular rate, regular rhythm, normal S1, normal S2 Gastrointestinal: Present: normoactive bowel sounds, no tenderness, obese Integumentary: Present: warm and dry Neurologic: Present: no focal deficit, no asterixis, alert and oriented x3 Musculoskeletal: Present: no erythema, no cyanosis, no clubbing Psychiatric: Present: mood/affect appropriate, cooperative - Lab 09/18/17 07:29 09/18/17 07:29 Most recent lab results Calcium 8.7 mg/dL (8.6-10.3) 09/18/17 07:29 Phosphorus 3.1 mg/dL (2.7-4.5) 09/14/17 03:31 Magnesium 1.9 mg/dL (1.6-2.6) 09/14/17 03:31 Consult Discharge Plan - Plan Referrals: Kimberly Delgado MD [Primary Care Provider] -
[2017-09-18 14:34] LABS: Beta Globulin (PEP) 0.55 g/dL (0.48-1.10)
[2017-09-18 15:08] LABS: IFE Reflexed IFE Done; Immunoglobulin A 208 mg/dL (68-408); Immunoglobulin G 622 mg/dL (768-1632); Immunoglobulin M 60 mg/dL (35-263)
--- NOTE | 2017-09-18 16:20 | Internal Med Progress Note ---
Date of Encounter: 09/18/17 Time of Encounter: 16:19 - Assessment and plan (1) UTI (urinary tract infection) Current Visit: Yes Status: Acute Assessment and plan: E.coli UTI with sepsis on Rocephin. Previously on Zosyn. Outside hospital notified partners that her blood cultures are positve and identity of organism and sensitivty reports are requested. A second set of blood cultures was obtained yesterday. Qualifiers: Urinary tract infection type: site unspecified Hematuria presence: without hematuria Qualified Code(s): N39.0 - Urinary tract infection, site not specified (2) Abdominal pain Current Visit: Yes Status: Acute Assessment and plan: Largely resolved now. CT-Abd/Pelvis did not show acute pathology. Qualifiers: Abdominal location: generalized Qualified Code(s): R10.84 - Generalized abdominal pain (3) SEVERO (acute kidney injury) Current Visit: Yes Status: Acute Assessment and plan: SEVERO on CKD-III. Nephrology on board, recommendations appreciated. Continue to avoid nephrotoxic medications including Akira/Arb. Renal function improving. Repeat BMP.. (4) Hyponatremia Current Visit: Yes Status: Acute Assessment and plan: Hyponatremia improving with 2L fluid restriction. Continue to monitor. Code(s): E87.1 - Hypo-osmolality and hyponatremia - Time Spent With Patient Greater than 35 minutes - Constitutional Vitals: Temp Pulse Resp BP Pulse Ox 98.1 F 95 16 136/93 96 09/18/17 16:01 09/18/17 16:01 09/18/17 16:01 09/18/17 16:01 09/18/17 16:01 General appearance: Present: A&O X 3, pleasant, no acute distress - Head Head exam: Present: atraumatic, normocephalic - Eye Eye exam: Present: EOMI, PERRL, conjuntiva pink, sclera anicteric Pupils: Present: PERRL - Neck Neck exam general surgery: Present: full ROM, supple, trachea midline. Absent: lymphadenopathy - Respiratory Respiratory exam: Present: CTAB. Absent: accessory muscle use, rales, rhonchi, wheezes - Cardiovascular Cardiovascular exam: Present: RRR, +S1, +S2. Absent: diastolic murmur, gallop, rubs, systolic murmur - GI/Abdominal GI/Abdominal exam: Present: normal bowel sounds, soft, no peritoneal signs. Absent: distended, tenderness - Extremities Exam Extremities exam: Present: normal inspection, warm, radial pulses palpable and symmetrical. Absent: calf tenderness, cyanotic, pedal edema - Neurological Exam Neurological exam: Present: CN II-XII intact, oriented X3, no focal deficits. Absent: pronater drift, facial droop, speech deficit - Skin Skin exam: Present: dry, intact Internal Medicine: Result - Labs CBC & Chem 7: 09/18/17 07:29 09/18/17 07:29 Labs: Short CBC 09/18/17 Range/Units 07:29 WBC 6.6 (4.3-11.1) K/mcL Hgb 8.7 L (11.5-15.4) g/dL Hct 28.8 L (35.3-44.9) % Plt Count 390 (140-400) K/mcL Neutrophils # 4.9 (1.6-8.9) K/mcL BMP 09/18/17 07:29 Sodium 143 Potassium 3.3 L Chloride 102 Carbon Dioxide 30 H BUN 13 Creatinine 1.13 Glucose 127 H Calcium 8.7 - ABG Interpretation ABG results: PT/INR, D-dimer D-Dimer 2677 ng/mLFEU (0-500) H 09/12/17 21:35 - Impressions Impressions Hip X-Ray 09/13/17 11:17 IMPRESSION: No acute abnormality in the pelvis or left hip status post left hip arthroplasty. D/ / 09/13/2017 14:03:07 David Lewis MD / [email or web address] Interpreting Provider: David Lewis MD Abdomen/Pelvis CT 09/15/17 10:08 IMPRESSION: No acute abnormality. D/ / 09/15/2017 11:46:30 Fredy Lewis MD / Faiza Wright Interpreting Provider: Fredy Lewis MD Consult Discharge Plan - Plan Referrals: Kimberly Delgado MD [Primary Care Provider] -
[2017-09-18] MEDS: Acetaminophen 325 MG TABLET PO PRN (16:49)
[2017-09-18] MEDS: *HR* Morphine Immed Rel 30 MG TABLET PO PRN (18:47)
[2017-09-19 04:57] LABS: Basophils % 0.2 %; Eosinophils # 0.2 K/mcL (0.0-0.6); Eosinophils % 2.9 %; Hematocrit 29.3 % (35.3-44.9); Hemoglobin 8.9 g/dL (11.5-15.4); Immature Granulocytes % 0.6 % (0-4); Lymphocytes # 0.8 K/mcL (0.6-4.6); Lymphocytes % 12.2 %; Mean Corpuscular HGB Conc 30.4 g/dL (31.6-35.5); Mean Corpuscular Hemoglobin 26.5 pg (28.0-33.3); Mean Corpuscular Volume 87.2 fL (83.0-100.0); Mean Platelet Volume 9.5 fL (9.4-12.4); Monocytes # 0.7 K/mcL (0.0-1.3); Neutrophils # 4.7 K/mcL (1.6-8.9); Platelet Count 411 K/mcL (140-400); Red Blood Count 3.36 M/mcL (3.82-4.97); Red Cell Distribution Width 13.7 % (11.5-14.5); Segmented Neutrophils % 73.1 %
[2017-09-19] MEDS: Ondansetron 4 MG/2 ML VIAL IVP PRN (05:11)
[2017-09-19] MEDS: *HR* Heparin 5,000 UNIT/ML VIAL SQ SCH ×2 (05:11→17:56)
[2017-09-19 05:28] LABS: BUN/Creatinine Ratio 9 (6-26); Blood Urea Nitrogen 9 mg/dL (8-23); Calcium 8.5 mg/dL (8.6-10.3); Carbon Dioxide 34 mEq/L (23-29); Chloride 97 mEq/L (98-107); Glucose 129 mg/dL (70-105); Osmolality,Calculated 290 (280-300); Potassium 3.1 mEq/L (3.5-5.1); Sodium 140 mEq/L (136-145); eGFR For African Americans > 60 (> 60); eGFR For Non-African Americans 54 (> 60)
[2017-09-19] MEDS: cefTRIAXone 1,000 MG in Water for inj. (sterile) 10 ML IVP SCH (09:02)
[2017-09-19] MEDS: Insulin DETEMIR 100 UNIT/ML X5UNITS SQ SCH (09:03)
[2017-09-19] MEDS: Insulin LISPRO 300 UNITS/3 ML VIAL SQ SCH ×4 (09:04→20:17)
[2017-09-19] MEDS ORDERED: *HR* LORazepam 2 MG/ML VIAL IVP ONE (14:26)
--- NOTE | 2017-09-19 15:07 | Discharge Summary ---
Date of Encounter: 09/20/17 Time of Encounter: 15:00 - Discharge Diagnosis (1) UTI (urinary tract infection) Priority: Primary Status: Acute Comments: E.coli UTI highly sensitive toe Rocephin and Cipro Qualifiers: Urinary tract infection type: site unspecified Hematuria presence: without hematuria Qualified Code(s): N39.0 - Urinary tract infection, site not specified (2) Abdominal pain Priority: Primary Status: Acute Comments: No significant pathlogy noted on imagng. Pain has resolved and was likely secondary to UTI. Qualifiers: Abdominal location: generalized Qualified Code(s): R10.84 - Generalized abdominal pain (3) SEVERO (acute kidney injury) Priority: Secondary Status: Acute Comments: Nephrology following and she will f/u with Nephrology after discharge. Continue holding Cellebrex and Enalapril. Code(s): N17.9 - Acute kidney failure, unspecified (4) Hyponatremia Priority: Secondary Status: Acute Comments: Continue 2L fluid restriction. Code(s): E87.1 - Hypo-osmolality and hyponatremia (5) Bacteremia Priority: Primary Status: Acute Comments: Blood cultures from OSH show E.coli bacteremia setive to Cipro.Cipro 500 mg PO BID for 14 days - Discharge Medications Prescriptions: Ciprofloxacin [Cipro] 500 mg PO BID 14 Days #28 tablet Home Medications: Insulin LISPRO [Humalog] 5 - 15 unit SQ TIDWM 11/22/15 [History] Insulin NPH, HUMAN [HumuLIN N] 35 unit SQ BID 11/22/15 [History] Paroxetine HCl [Paroxetine] 40 mg PO DAILY 11/22/15 [History] Atorvastatin Calcium [Lipitor] 20 mg PO QPM 08/13/17 [History] Buspirone HCl [Buspar] 5 mg PO BID 08/13/17 [History] Cyclobenzaprine [Flexeril] 5 mg PO HS 08/13/17 [History] Gabapentin [Neurontin] 400 mg PO BID 09/13/17 [History] Ciprofloxacin [Cipro] 500 mg PO BID 14 Days #28 tablet 09/19/17 [Rx] Allergies/Adverse Reactions: 3 Allergy/AdvReac Type Severity Reaction Status Date / Time codeine Allergy Severe Anaphylaxis Verified 08/09/17 14:02 Date of admission: 09/12/17 21:07 Primary care physician: Kimberly Delgado, Consults: 09/12/17 23:32 Consult to Pulmonology [CONS] Routine Consulting Provider: [facility] [place] Reason for Consult: Management of HHS, Urosepsis Call Completed: No 09/15/17 17:51 Consult to Occupational Therapy [CONS] Routine Comment: Evaluate, develop and implement POC Reason for Consult: Evaluate, develop and implement POC Consult to Physical Therapy [CONS] Routine Comment: Evaluate, develop and implement POC Reason for Consult: Disposition planning. Therapy - weakness in bed. 09/17/17 12:47 Consult to Invasive Line Access Team [CONS] Routine Reason for Consult: powerglide Line Type: EPIV Discharging clinician: Damaso White - Patient Status Disposition: Home, Self-Care - Discharge Instructions Follow Up With: Kimberly Delgado MD [Primary Care Provider] - Hospital course: The pt is a 66 year old woman admitted from OSH with an Ecoli UTI and bacteremia and SEVERO as well as hyponatremia. She was seen by Nephrology and she was started Rocephin. hen sensitiity reports became available [facility] A 2L fluid restriction was employed due her hyponatremia. Her COLINDRES-inhibitor and Enalapril were held due to SEVERO. She was d/c in stable condition. - Time Spent with Patient Total time spent providing and/or coordinating discharge services: - Constitutional Vitals: Temp Pulse Resp BP Pulse Ox 98.1 F 84 16 149/85 97 09/19/17 11:45 09/19/17 11:45 09/19/17 11:45 09/19/17 11:45 09/19/17 11:45 General appearance: Present: A&O X 3, pleasant, no acute distress
[2017-09-19] MEDS: *HR* Morphine Immed Rel 30 MG TABLET PO PRN (16:27)
[2017-09-19] MEDS: Gabapentin 400 MG CAPSULE PO SCH (20:21)
[2017-09-20 05:02] LABS: Basophils % 0.6 %; Eosinophils # 0.2 K/mcL (0.0-0.6); Eosinophils % 4.2 %; Hematocrit 27.4 % (35.3-44.9); Hemoglobin 8.2 g/dL (11.5-15.4); Immature Granulocytes % 1.4 % (0-4); Lymphocytes # 1.1 K/mcL (0.6-4.6); Lymphocytes % 22.4 %; Mean Corpuscular HGB Conc 29.9 g/dL (31.6-35.5); Mean Corpuscular Hemoglobin 26.2 pg (28.0-33.3); Mean Corpuscular Volume 87.5 fL (83.0-100.0); Mean Platelet Volume 9.6 fL (9.4-12.4); Monocytes # 0.6 K/mcL (0.0-1.3); Monocytes % 11.7 %; Platelet Count 356 K/mcL (140-400); Red Blood Count 3.13 M/mcL (3.82-4.97); Segmented Neutrophils % 59.7 %
[2017-09-20 05:53] LABS: Calcium 8.2 mg/dL (8.6-10.3); Potassium 3.1 mEq/L (3.5-5.1)
[2017-09-20] MEDS: *HR* Heparin 5,000 UNIT/ML VIAL SQ SCH (06:25)
[2017-09-20 07:35] VITALS: BP 127/79
[2017-09-20] MEDS: Gabapentin 400 MG CAPSULE PO SCH (08:05)
[2017-09-20] MEDS: Insulin LISPRO 300 UNITS/3 ML VIAL SQ SCH (08:05)
--- NOTE | 2017-09-20 08:27 | Internal Med Progress Note ---
Date of Encounter: 09/20/17 Time of Encounter: 17:10 - Assessment and plan (1) UTI (urinary tract infection) Status: Acute Qualifiers: Urinary tract infection type: site unspecified Hematuria presence: without hematuria Qualified Code(s): N39.0 - Urinary tract infection, site not specified (2) Abdominal pain Status: Acute Qualifiers: Abdominal location: generalized Qualified Code(s): R10.84 - Generalized abdominal pain (3) SEVERO (acute kidney injury) Status: Acute Code(s): N17.9 - Acute kidney failure, unspecified (4) Hyponatremia Status: Acute Code(s): E87.1 - Hypo-osmolality and hyponatremia (5) Bacteremia Status: Acute - Constitutional Vitals: Temp Pulse Resp BP Pulse Ox 98.2 F 78 16 127/79 94 09/20/17 07:34 09/20/17 07:34 09/20/17 07:34 09/20/17 07:34 09/20/17 07:34 General appearance: Present: A&O X 3, pleasant, no acute distress Internal Medicine: Result - Labs CBC & Chem 7: 09/20/17 04:02 09/20/17 04:02 Labs: Short CBC 09/20/17 Range/Units 04:02 WBC 5.0 (4.3-11.1) K/mcL Hgb 8.2 L (11.5-15.4) g/dL Hct 27.4 L (35.3-44.9) % Plt Count 356 (140-400) K/mcL Neutrophils # 3.0 (1.6-8.9) K/mcL BMP 09/20/17 04:02 Sodium 139 Potassium 3.1 L Chloride 97 L Carbon Dioxide 35 H BUN 10 Creatinine 1.34 H Glucose 149 H Calcium 8.2 L - ABG Interpretation ABG results: PT/INR, D-dimer D-Dimer 2677 ng/mLFEU (0-500) H 09/12/17 21:35 Consult Discharge Plan - Plan Instructions: Sepsis (DC) Referrals: Kimberly Delgado MD [Primary Care Provider] - Prescriptions: Ciprofloxacin [Cipro] 500 mg PO BID 14 Days #28 tablet
[2017-09-20] MEDS: Insulin DETEMIR 100 UNIT/ML X5UNITS SQ SCH (08:31)
== END 2017-09-20 09:20 | disposition home or self-care (01) | DRG 871 ==
LOC: ICNU 21:07 → 3NENU 09-14 18:25 → 1NENUPED 09-17 12:22
PROVIDERS: ADMIT Hospitalist; ATTEND Hospitalist

== ENCOUNTER 2019-07-09 11:34 | Observation (INO) ==
[2019-07-09] MEDS ORDERED: Ondansetron 4 MG/2 ML VIAL IVP ONE (12:11)
[2019-07-09] MEDS ORDERED: *HR* Promethazine 25 MG/ML VIAL IVP PRN ×2 (12:11→17:41)
[2019-07-09] MEDS ORDERED: *HR* OxyCODONE Immed Rel 5 MG TABLET PO PRN (12:11)
[2019-07-09] MEDS ORDERED: *HR* HYDROmorphone (PF) 1 MG/ML SYRINGE IVP PRN (12:11)
[2019-07-09] MEDS ORDERED: Ringers Solution, Lactated 1,000 ML IVC SCH ×2 (12:15→17:41)
[2019-07-09] MEDS ORDERED: Acetaminophen IV 1,000 MG/100 ML INFUS..BTL IVPB ONE (12:26)
[2019-07-09] MEDS ORDERED: traMADol 50 MG TABLET PO PRN ×2 (12:31→17:41)
[2019-07-09] MEDS ORDERED: Lidocaine -MPF 2% 2 ML VIAL ONE (13:25)
[2019-07-09] MEDS ORDERED: *HR* FentaNYL (PF) 100 MCG/2 ML VIAL ONE (13:25)
[2019-07-09] MEDS ORDERED: Ondansetron 4 MG/2 ML VIAL ONE (13:25)
[2019-07-09] MEDS ORDERED: Dexamethasone 4 MG/ML VIAL ONE (13:25)
[2019-07-09] MEDS ORDERED: *HR* Midazolam HCl 2 MG/2 ML VIAL ONE (13:26)
[2019-07-09 13:41] LABS: Calcium 9.3 mg/dL (8.6-10.3); Potassium 4.8 mEq/L (3.5-5.1)
[2019-07-09] MEDS ORDERED: Total Joint Mixture (50 ml) IR ONE (14:15)
[2019-07-09] MEDS ORDERED: Ropivacaine/PF 0.5% 30 ML VIAL ONE (14:18)
[2019-07-09] MEDS ORDERED: Ethanol\\Acetic Acid\\Na Ace\\Ben 1,000 ML IRRIG.SOLN IR ONE (14:21)
[2019-07-09] MEDS ORDERED: *HR* PHENYLEPHRINE 1,000 MCG/10 ML SYRINGE IVP ONE ×2 (15:07→15:47)
[2019-07-09] MEDS ORDERED: *HR* HYDROMORPHONE 2 MG/ML VIAL ONE (15:40)
[2019-07-09 17:15] LABS: Hematocrit 29.7 % (35.3-44.9); Hemoglobin 9.9 g/dL (11.5-15.4)
[2019-07-09] MEDS ORDERED: Ondansetron 4 MG/2 ML VIAL IVP PRN (17:41)
[2019-07-09] MEDS ORDERED: D5% in Water 1,000 ML IVC PRN (17:41)
[2019-07-09] MEDS ORDERED: Temazepam 15 MG CAPSULE PO PRN (17:41)
[2019-07-09] MEDS ORDERED: Dextrose Gel 15 GM/37.5 ML TUBE PO PRN ×2 (17:41)
[2019-07-09] MEDS ORDERED: HYDROcodone BIT/Homatropine 5 MG TABLET PO PRN (17:41)
[2019-07-09] MEDS ORDERED: MOM Conc 10 ML UD.LIQ PO PRN (17:41)
[2019-07-09] MEDS ORDERED: *HR* Dextrose 50 % in Water (Syg) 50 ML SYRINGE IVP PRN (17:41)
[2019-07-09] MEDS ORDERED: Sennosides 8.6 MG TABLET PO PRN (17:41)
[2019-07-09] MEDS ORDERED: Naloxone 0.4 MG/ML INJ IVP PRN (17:41)
[2019-07-09] MEDS ORDERED: Insulin DETEMIR 100 UNIT/ML X5UNITS SQ SCH ×2 (18:00→21:00)
[2019-07-09] MEDS: Ascorbic Acid 500 MG TABLET PO SCH (18:21)
[2019-07-09] MEDS: Insulin LISPRO 300 UNITS/3 ML VIAL SQ SCH (20:23)
[2019-07-09] MEDS ORDERED: INSULIN DEGLUDEC SQ SCH ×2 (21:00)
[2019-07-09] MEDS ORDERED: Insulin LISPRO 300 UNITS/3 ML VIAL SQ SCH (21:00)
[2019-07-09] MEDS: *HR* OxyCODONE Immed Rel 5 MG TABLET PO PRN (21:03)
[2019-07-10 05:06] LABS: Basophils % 0.1 %; Hematocrit 26.7 % (35.3-44.9); Hemoglobin 8.9 g/dL (11.5-15.4); Immature Granulocytes % 0.5 % (0-4); Lymphocytes # 0.7 K/mcL (0.6-4.6); Lymphocytes % 8.1 %; Mean Corpuscular HGB Conc 33.3 g/dL (31.6-35.5); Mean Corpuscular Hemoglobin 30.3 pg (28.0-33.3); Mean Corpuscular Volume 90.8 fL (83.0-100.0); Mean Platelet Volume 10.2 fL (9.4-12.4); Monocytes # 0.7 K/mcL (0.0-1.3); Monocytes % 7.7 %; Neutrophils # 7.1 K/mcL (1.6-8.9); Platelet Count 208 K/mcL (140-400); Red Blood Count 2.94 M/mcL (3.82-4.97); Red Cell Distribution Width 13.5 % (11.5-14.5); Segmented Neutrophils % 83.6 %; White Blood Count 8.5 K/mcL (4.3-11.1)
[2019-07-10 05:28] LABS: Calcium 8.3 mg/dL (8.6-10.3); Potassium 4.7 mEq/L (3.5-5.1)
[2019-07-10] MEDS: *HR* OxyCODONE Immed Rel 5 MG TABLET PO PRN ×2 (06:23→13:52)
[2019-07-10] MEDS: Ascorbic Acid 500 MG TABLET PO SCH ×2 (07:18→15:38)
[2019-07-10] MEDS: Insulin LISPRO 300 UNITS/3 ML VIAL SQ SCH ×3 (07:19→18:06)
[2019-07-10] MEDS ORDERED: amLODIPine 5 MG TABLET PO SCH (09:00)
[2019-07-10] MEDS ORDERED: Multivit/Ca/Min/Fe/FA 1 TAB TABLET PO SCH (09:00)
[2019-07-10] MEDS ORDERED: Cholecalciferol (D-3) 1,000 UNIT (25MCG) TABLET PO SCH (09:00)
[2019-07-10] MEDS ORDERED: PHYTONADIONE 100 MCG PO SCH (09:00)
[2019-07-10] MEDS ORDERED: *HR* Enoxaparin 30 MG/0.3 ML SYRINGE SQ SCH ×2 (12:45→13:00)
[2019-07-10] MEDS ORDERED: FLU Vac QV 19-20 (6Month+)/PF 0.5 ML SYRINGE IM ONE (16:58)
[2019-07-10 18:30] VITALS: BP 104/73
== END 2019-07-10 19:14 | disposition home health service (06) | DRG 467 ==
LOC: SAMDAY 11:34 → INTOOBSV 17:39 → 3NENU 17:39
PROVIDERS: ADMIT Orthopaedic Surgery; ATTEND Orthopaedic Surgery

== ENCOUNTER 2021-08-04 09:44 | Observation (INO) ==
[2021-08-04 10:52] LABS: Basophils % 0.5 %; Eosinophils # 0.2 K/mcL (0.0-0.6); Eosinophils % 3.6 %; Hemoglobin 10.1 g/dL (11.5-15.4); Immature Granulocytes % 0.2 % (0-4); Lymphocytes # 0.6 K/mcL (0.6-4.6); Lymphocytes % 14.2 %; Mean Corpuscular HGB Conc 30.6 g/dL (31.6-35.5); Mean Corpuscular Hemoglobin 26.9 pg (28.0-33.3); Mean Corpuscular Volume 87.8 fL (83.0-100.0); Mean Platelet Volume 9.6 fL (9.4-12.4); Monocytes # 0.3 K/mcL (0.0-1.3); Monocytes % 7.7 %; Neutrophils # 3.3 K/mcL (1.6-8.9); Platelet Count 252 K/mcL (140-400); Red Blood Count 3.76 M/mcL (3.82-4.97); Red Cell Distribution Width 15.5 % (11.5-14.5); Segmented Neutrophils % 73.8 %; White Blood Count 4.4 K/mcL (4.3-11.1)
[2021-08-04 10:56] LABS: Bilirubin,Urine Negative (Negative); Blood,Urine Trace (Negative); Clarity,Urine Clear (Clear); Color,Urine Light-Yellow (Yellow); Glucose,Urine (UA) >=1000 mg/dL (Normal); Hyaline Casts,Urine Few per lpf (None Seen); Ketones,Urine Negative (Negative); Leukocyte Esterase,Urine Small (Negative); Mucus,Urine Few per lpf (None-Few); Nitrite,Urine Negative (Negative); Protein,Urine 100 mg/dL (Neg-Trace); RBC,Urine 0-3 per hpf (0-3); Specific Gravity,Urine 1.015 (1.010-1.025); Squamous Epithelial Cell,Urine Few per hpf (None-Few); Urobilinogen,Urine Normal (Normal); WBC,Urine 50-100 per hpf (0-3)
[2021-08-04 11:05] LABS: BUN/Creatinine Ratio 14 (6-26); Blood Urea Nitrogen 35 mg/dL (8-23); Calcium 8.7 mg/dL (8.6-10.3); Carbon Dioxide 24 mEq/L (23-29); Chloride 103 mEq/L (98-107); Glucose 405 mg/dL (70-105); Osmolality,Calculated 303 (280-300); Potassium 4.3 mEq/L (3.5-5.1); Sodium 134 mEq/L (136-145); eGFR For African Americans 23 (> 60); eGFR For Non-African Americans 19 (> 60)
[2021-08-04 11:24] LABS: Troponin I < 0.03 ng/mL (< 0.04)
[2021-08-04 11:25] LABS: Amphetamine Screen,Urine Negative ng/mL (Cutoff=1000); Barbiturate Screen,Urine Negative ng/mL (Cutoff=200); Benzodiazepines Screen,Urine Negative ng/mL (Cutoff=200); Cannabinoid Screen,Urine Negative ng/mL (Cutoff = 50); Cocaine Screen,Urine Negative ng/mL (Cutoff= 300); Opiate Screen,Urine Negative ng/mL (Cutoff=300); Phencyclidine Screen,Urine Negative ng/mL (Cutoff=25)
[2021-08-04 11:30] LABS: Acetaminophen < 10 mcg/mL (10-20); Chol/HDL Ratio 2.7 (0-4.9); Cholesterol 106 mg/dL (< 200); Ethanol < 10 mg/dL (Less than 10); HDL Cholesterol 40 mg/dL (40-59); LDL Cholesterol,Calculated 43 mg/dL (< 100); Salicylate 8.8 mg/dL (15.0-30.0); Triglycerides 117 mg/dL (< 150)
[2021-08-04] MEDS ORDERED: Cefepime HCl 2,000 MG in 0.9 % Sodium Chloride Mini Bag 100 ML IVPB ONE (11:37)
[2021-08-04 11:49] LABS: Influenza A PCR Negative (Negative); Influenza B PCR Negative (Negative); Resp. Syncytial Virus PCR Negative (Negative)
[2021-08-04 12:02] LABS: SARS-CoV-2 by PCR (In House) Negative (Negative)
[2021-08-04 12:36] LABS: Estimated Average Glucose 232 mg/dl; Hemoglobin A1C 9.7 %
[2021-08-04] MEDS ORDERED: Naloxone 0.4 MG/ML INJ IVP PRN (13:28)
[2021-08-04] MEDS ORDERED: Ondansetron 4 MG/2 ML VIAL IVP PRN (13:28)
[2021-08-04] MEDS ORDERED: 0.9 % Sodium Chloride 1,000 ML IVC SCH (13:30)
[2021-08-04] MEDS ORDERED: Dextrose Gel 15 GM/37.5 ML TUBE PO PRN ×2 (13:32)
[2021-08-04] MEDS ORDERED: D5% in Water 1,000 ML IVC PRN (13:32)
[2021-08-04] MEDS ORDERED: *HR* Dextrose 50 % in Water (Syg) 50 ML SYRINGE IVP PRN (13:32)
[2021-08-04] MEDS ORDERED: Insulin Human Regular 10 UNIT in 0.9 % Sodium Chloride 10 ML IV ONE (13:34)
[2021-08-04] MEDS: Insulin LISPRO 300 UNITS/3 ML VIAL SUBQ SCH (18:46)
[2021-08-04] MEDS ORDERED: traZODone 50 MG TABLET PO PRN (20:35)
[2021-08-04] MEDS: carvediloL 6.25 MG TABLET PO SCH (20:54)
[2021-08-04] MEDS ORDERED: Insulin DETEMIR 100 UNIT/ML X5UNITS SUBQ SCH (21:00)
[2021-08-04] MEDS ORDERED: Insulin LISPRO 300 UNITS/3 ML VIAL SUBQ SCH (21:00)
[2021-08-05 02:23] LABS: Basophils % 0.6 %; Eosinophils # 0.2 K/mcL (0.0-0.6); Eosinophils % 3.5 %; Hemoglobin 9.2 g/dL (11.5-15.4); Immature Granulocytes % 0.2 % (0-4); Lymphocytes # 0.6 K/mcL (0.6-4.6); Lymphocytes % 12.7 %; Mean Corpuscular HGB Conc 30.7 g/dL (31.6-35.5); Mean Corpuscular Hemoglobin 27.1 pg (28.0-33.3); Mean Corpuscular Volume 88.5 fL (83.0-100.0); Mean Platelet Volume 9.7 fL (9.4-12.4); Monocytes # 0.3 K/mcL (0.0-1.3); Monocytes % 7.1 %; Neutrophils # 3.6 K/mcL (1.6-8.9); Platelet Count 226 K/mcL (140-400); Red Blood Count 3.39 M/mcL (3.82-4.97); Red Cell Distribution Width 15.7 % (11.5-14.5); Segmented Neutrophils % 75.9 %; White Blood Count 4.8 K/mcL (4.3-11.1)
[2021-08-05 02:34] LABS: Calcium 8.2 mg/dL (8.6-10.3); Potassium 4.1 mEq/L (3.5-5.1)
[2021-08-05] MEDS: Insulin LISPRO 300 UNITS/3 ML VIAL SUBQ SCH ×3 (08:35→19:35)
[2021-08-05] MEDS: carvediloL 6.25 MG TABLET PO SCH (08:49)
[2021-08-05] MEDS ORDERED: amLODIPine 5 MG TABLET PO SCH (09:00)
[2021-08-05] MEDS ORDERED: Aspirin Enteric Coated 81 MG Tablet PO SCH (09:00)
[2021-08-05] MEDS ORDERED: cefTRIAXone 1,000 MG in Water for inj. (sterile) 10 ML IVP SCH (10:00)
[2021-08-05] MEDS ORDERED: Thiamine (B-1) 100 MG TABLET PO SCH (11:00)
[2021-08-05 19:01] VITALS: BP 130/77; PULSE 80; TEMP 98.1; O2SAT 99
== END 2021-08-05 20:48 | disposition home or self-care (01) ==
LOC: EMEROOARM 09:44 → 3BNU 09:44 → SUATTDRO 13:52 → 3BNU 14:33
PROVIDERS: ADMIT Hospitalist; ATTEND Student in an Organized Health Care Education/Training Program